=== PATIENT | male | born 1940 | race Caucasian/White ===

== ENCOUNTER 2019-07-05 17:54 | Inpatient (IN) | payer MEDICARE, MEDICAID ==
[~2019-07-05] VITALS: Ht 175.3 cm; Wt 86.2 kg
[~2019-07-05 17:54] MED LIST: VECuronium br 10mg inj. IV ONE; calcium chloride inj. 1,000 MG in normal saline 100ml IV soln 100 ML IV ONE; etomidate 2mg/ml inj. ONE
[2019-07-05] MEDS ORDERED: normal saline 1000ML IV soln IV ONE (18:05)
[2019-07-05] MEDS ORDERED: piperacillin/tazo 3.375gm/50ml 50 ML IV ONE (18:05)
[2019-07-05 18:30] LABS: ABG BASE EXCESS -7.1 mmol/L (-2.0-3.0); ABG HCO3 16.2 mmol/L (22.0-26.0); ABG OXYGEN SATURATION 96.7 % (95-98); ABG PCO2 (T) 26.2 mmHg (35.0-45.0); ABG PH (T) 7.407 (7.350-7.450); ABG PO2 (T) 89.3 mmHg (83-108); FCOHb 0.3 % (0.5-1.5); FLOW 15 L/min; FMetHb 0.2 % (0.3-1.12); FO2Hb 96.2 % (94-100); PATIENT TEMPERATURE 36.7
[2019-07-05] MEDS ORDERED: diltiazem-D5W 125mg/125ml 125 ML IV ONE (18:36)
--- NOTE | 2019-07-05 18:37 | NUR ---
DISCUSSED PLAN OF CARE WITH DR SAINI: EEVATED HR AND RR AND VERY SHALLOW BREATHS
[2019-07-05 18:38] LABS: BASOPHILS % (AUTO) 0.1 % (0-1); EOSINOPHILS # (AUTO) 0.1 X10'3 (0-0.9); EOSINOPHILS % (AUTO) 1.1 % (0-6); HEMATOCRIT 34.5 % (42.0-52.0); HEMOGLOBIN 11.7 g/dl (14.0-17.9); LYMPHOCYTES # (AUTO) 0.2 X10'3 (1.1-4.8); LYMPHOCYTES % (AUTO) 1.8 % (21-51); MEAN CORPUSCULAR HGB CONC 33.9 g/dL (33.0-36.5); MEAN CORPUSCULAR VOLUME 100.2 FL (78-98); MEAN PLATELET VOLUME 6.7 FL (7.4-10.4); MONOCYTES # (AUTO) 0.1 X10'3 (0-0.9); MONOCYTES % (AUTO) 0.8 % (2-12); NEUTROPHILS # (AUTO) 11.3 X10'3 (1.8-7.7); NEUTROPHILS % (AUTO) 96.2 % (42-75); PLATELET COUNT 104 X10'3 (140-440); RED BLOOD COUNT 3.45 X10'6 (4.70-6.10); WHITE BLOOD COUNT 11.7 X10'3 (4.5-11.0)
[2019-07-05] MEDS ORDERED: diltiazem 5mg/ml 5ml inj. IV ONE ×2 (18:40→19:00)
[2019-07-05] MEDS ORDERED: LORazepam 2 mg/ml vial IV ONE (18:40)
--- NOTE | 2019-07-05 18:44 | NUR ---
CARDIZEM 5 MG HR 154 TRASIENTLY TO 121 THEN BACK UP TO 148
[2019-07-05 18:45] LABS: PARTIAL THROMBOPLASTIN TIME 33 SECONDS (22-32)
[2019-07-05 18:48] LABS: CLARITY,URINE SLIGHTLY CLOUDY (Clear); COLOR,URINE YELLOW (Yellow); GLUCOSE, URINE NEGATIVE (Neg); KETONES,URINE NEGATIVE (Neg); LEUKOCYTE ESTERASE ,URINE SMALL (Neg); NITRITES, URINE NEGATIVE (Neg); OCCULT BLOOD,URINE LARGE (Neg); PH,URINE 5.5 (4.8-8.0); PROTEIN,URINE 100 mg/dl (Neg); UROBILINOGEN,URINE 0.2 E.U/dL (0.2-1.0)
[2019-07-05 18:50] LABS: UA COLLECTION TYPE FOLEY CATH
[2019-07-05] MEDS ORDERED: diltiazem-NS 100mg/100ml 100 ML IV ONE (18:54)
[2019-07-05 18:59] LABS: ALANINE AMINOTRANSFERASE 77 U/L (12-78); ALBUMIN 2.6 G/DL (3.4-5.0); ALBUMIN/GLOBULIN RATIO 0.6 (1.1-1.5); ALKALINE PHOSPHATASE 85 IU/L (46-116); ANION GAP 13 (8-16); ASPARTATE AMINO TRANSFERASE 74 U/L (10-37); BILIRUBIN,TOTAL 0.9 MG/DL (0.1-1.0); BLOOD UREA NITROGEN 97 MG/DL (7-18); CALCIUM 8.5 MG/DL (8.5-10.1); CHLORIDE 108 MMOL/L (99-107); CREATININE 5.11 MG/DL (0.60-1.10); GLUCOSE 119 MG/DL (70-104); POTASSIUM 5.8 MMOL/L (3.5-5.1); SODIUM 141 MMOL/L (135-145); TOTAL CARBON DIOXIDE 19.7 MMOL/L (24-32); TOTAL PROTEIN 6.7 G/DL (6.4-8.2); eGFR 11 ML/MIN
[2019-07-05 19:00] LABS: BACTERIA,URINE 3+ /HPF (Neg); FINE GRANULAR CAST >30 /LPF (NEGATIVE); SQUAMOUS EPITHELIAL CELL,UR FEW /LPF (FEW); WBC,URINE 30-50 /HPF (0-4)
[2019-07-05 19:11] LABS: MAGNESIUM 1.8 MG/DL (1.5-2.4)
[2019-07-05 19:14] LABS: CREATINE KINASE 1286 U/L (39-308)
[2019-07-05] MEDS ORDERED: midazolam 100mg in NS 100ml 100 ML IV PRN (19:14)
[2019-07-05] MEDS ORDERED: FENTANYL-0.9 % NACL/PF 100 ML IV PRN (19:14)
[2019-07-05] MEDS ORDERED: midazolam 2 mg/2 ml injection IV ONE (19:15)
--- NOTE | 2019-07-05 19:20 | NUR ---
ROCURONIUM 100 MG AND ETOMIDATE 20 MG GIVEN IV BY CHERYL GOTTLIEB
[2019-07-05 19:21] LABS: TOTAL CELLS COUNTED 100
[2019-07-05 19:22] LABS: PLATELET ESTIMATE DECREASED; TOXIC GRANULATION 2+; TOXIC VACUOLATION 2+
[2019-07-05] MEDS: propofol 1000mg/100ml bottle 100 ML IV SCH (19:39)
[2019-07-05 19:51] LABS: ABG BASE EXCESS -9.3 mmol/L (-2.0-3.0); ABG HCO3 15.5 mmol/L (22.0-26.0); ABG OXYGEN SATURATION 93.4 % (95-98); ABG PCO2 (T) 31.5 mmHg (35.0-45.0); ABG PH (T) 7.313 (7.350-7.450); ABG PO2 (T) 78.1 mmHg (83-108); ALLEN'S TEST Positive; FCOHb 0.3 % (0.5-1.5); FMetHb 0.1 % (0.3-1.12); MINUTE VOLUME 12 L/min; PATIENT TEMPERATURE 37.8; PEEP 5 cm H2O; RESPIRATORY RATE 22 b/min; RESPIRATORY RATE (OBSERVED) 22 b/min; TIDAL VOLUME 500 mL; TOTAL HEMOGLOBIN 12.3 G/dl (14.0-17.9)
--- NOTE | 2019-07-05 20:13 | NUR ---
TO CT WITH RN CHERYL ON MONITOR WITH RT
--- NOTE | 2019-07-05 20:30 | NUR ---
TROPONIN AND LACTATE DRAWN FROM RIGHT WRIST PIV
[2019-07-05] MEDS ORDERED: calcium chloride 100 MG/1 ML inj IV ONE (20:45)
--- NOTE | 2019-07-05 21:08 | NUR ---
DISCUSSED PLAN OF CARE WITH DR SAINI AND RAVI EMANUEL: HOLD CACL
[2019-07-05] MEDS ORDERED: acetaminophen 325mg tablet PO PRN ×2 (21:10)
[2019-07-05] MEDS ORDERED: potassium CL 10mEq/100ml bag 100 ML IV PRN (21:10)
[2019-07-05] MEDS ORDERED: ondansetron/PF 4mg/2ml inj IV PRN (21:10)
[2019-07-05] MEDS ORDERED: acetaminophen 650mg rectal suppository RC PRN (21:10)
[2019-07-05] MEDS ORDERED: morphine 2 MG/ML inj. syringe IV PRN (21:10)
[2019-07-05] MEDS ORDERED: morphine 4 MG/ML inj SYRINge IV PRN (21:10)
[2019-07-05] MEDS ORDERED: furosemide 10 MG/1 ML 10ml inj IV ONE (21:10)
[2019-07-05] MEDS ORDERED: potassium Cl 20 mEq SR tablet PO PRN ×2 (21:10)
[2019-07-05] MEDS ORDERED: ipratropium/albuterol 3ml nebule NEB PRN (21:10)
--- NOTE | 2019-07-05 21:56 | NUR ---
REMOVED MEDICAL SUPERINTENDENT SANDOVAL, USING STERILE TECHNIQUE PLACED 16 F TEMPERATURE SANDOVAL
[2019-07-05] MEDS: K, MAG and/or Phos replacement - Verify level? MC SCH (21:57)
--- NOTE | 2019-07-05 22:15 | NUR ---
BULL ANDRADE ATTEMPTED TO GIVE TYLENOL RECTALLY . PER RN PATITIENT DOES NOT HAVE AN ANUS. ICE PACKS PLACED
--- NOTE | 2019-07-05 22:41 | NUR ---
I have received report from Ade GOTTLIEB and had the opportunity to ask questions. Pt to be admitted to room 2009 from ER will assume patient care upon arrival.
--- NOTE | 2019-07-05 22:44 | NUR ---
REPORT TO ACCOUNTING MACHINE MECHANICBULL RICHARDSON AND RESPIRATORY THERAPY PAGED
--- NOTE | 2019-07-05 22:57 | NUR ---
CSECOND CARDIZEM GTT HUN MG/100 ML: WOULD NOT SCAN FOR THE SECOND TIME
[2019-07-05 23:13] VITALS: BP 87/48
[2019-07-05] MEDS: midazolam 100mg in NS 100ml 100 ML IV PRN (23:19)
[2019-07-06] VITALS (25 sets, daily range): BP systolic 74–148; BP diastolic 35–86
[2019-07-06] MEDS ORDERED: normal saline 500ml IV soln 500 ML IV ONE (00:25)
[2019-07-06] MEDS ORDERED: methylPREDNISolone sod succ 125mg/2ml vial IV ONE (00:25)
--- NOTE | 2019-07-06 00:30 | NUR ---
Pt with BP of 55/39 MAP 45, Versed gtt paused, Cardizem gtt off. Received orders for NS bolus and Solumederol IVP.
[2019-07-06] MEDS: sodium bicarbonate inj. 75 ML in dextrose 5% water 500ml 500 ML IV SCH ×5 (00:45→22:55)
[2019-07-06] MEDS: FENTANYL-0.9 % NACL/PF 100 ML IV PRN (01:15)
[2019-07-06 02:51] LABS: ABG BASE EXCESS -10.8 mmol/L (-2.0-3.0); ABG HCO3 12.8 mmol/L (22.0-26.0); ABG OXYGEN SATURATION 94.9 % (95-98); ABG PCO2 (T) 23.8 mmHg (35.0-45.0); ABG PH (T) 7.352 (7.350-7.450); ABG PO2 (T) 82.1 mmHg (83-108); ALLEN'S TEST Positive; FCOHb 0.2 % (0.5-1.5); FMetHb 0.1 % (0.3-1.12); FO2Hb 94.6 % (94-100); MINUTE VOLUME 14 L/min; PEEP 5 cm H2O; RESPIRATORY RATE 22 b/min; RESPIRATORY RATE (OBSERVED) 26 b/min; TIDAL VOLUME 500 mL; TOTAL HEMOGLOBIN 11.7 G/dl (14.0-17.9)
[2019-07-06 03:14] LABS: ALANINE AMINOTRANSFERASE 65 U/L (12-78); ALBUMIN 2.2 G/DL (3.4-5.0); ALBUMIN/GLOBULIN RATIO 0.6 (1.1-1.5); ALKALINE PHOSPHATASE 73 IU/L (46-116); ANION GAP 17 (8-16); ASPARTATE AMINO TRANSFERASE 55 U/L (10-37); BILIRUBIN,TOTAL 0.9 MG/DL (0.1-1.0); BLOOD UREA NITROGEN 91 MG/DL (7-18); BUN/CREATININE RATIO 20.9 (5.4-32.0); CALCIUM 7.5 MG/DL (8.5-10.1); CHLORIDE 109 MMOL/L (99-107); CREATININE 4.36 MG/DL (0.60-1.10); GLUCOSE 170 MG/DL (70-104); POTASSIUM 5.5 MMOL/L (3.5-5.1); SODIUM 141 MMOL/L (135-145); TOTAL CARBON DIOXIDE 15.5 MMOL/L (24-32); TOTAL PROTEIN 5.9 G/DL (6.4-8.2); eGFR 13 ML/MIN
[2019-07-06 03:19] LABS: MAGNESIUM 1.7 MG/DL (1.5-2.4); PHOSPHORUS 4.4 MG/DL (2.3-4.5); TRIGLYCERIDES 152 MG/DL (20-135)
[2019-07-06 03:48] LABS: BASOPHILS % (AUTO) 0.1 % (0-1); EOSINOPHILS # (AUTO) 0.1 X10'3 (0-0.9); HEMATOCRIT 33.3 % (42.0-52.0); HEMOGLOBIN 11.2 g/dl (14.0-17.9); LYMPHOCYTES # (AUTO) 0.3 X10'3 (1.1-4.8); LYMPHOCYTES % (AUTO) 2.5 % (21-51); MEAN CORPUSCULAR HGB CONC 33.6 g/dL (33.0-36.5); MEAN CORPUSCULAR VOLUME 101.1 FL (78-98); MONOCYTES # (AUTO) 0.2 X10'3 (0-0.9); MONOCYTES % (AUTO) 1.5 % (2-12); NEUTROPHILS # (AUTO) 11.6 X10'3 (1.8-7.7); NEUTROPHILS % (AUTO) 94.9 % (42-75); PLATELET COUNT 79 X10'3 (140-440); RED BLOOD COUNT 3.29 X10'6 (4.70-6.10); RED CELL DISTRIBUTION WIDTH 13.3 % (11.5-14.5); WHITE BLOOD COUNT 12.3 X10'3 (4.5-11.0)
[2019-07-06 04:10] LABS: PLATELET ESTIMATE DECREASED; TOTAL CELLS COUNTED 100
[2019-07-06 04:11] LABS: TOXIC GRANULATION 2+; TOXIC VACUOLATION 2+
[2019-07-06] MEDS ORDERED: normal saline 500ml IV soln 1,000 ML IV ONE (04:20)
--- NOTE | 2019-07-06 04:20 | NUR ---
Called Jocelyn Reese BUFFER MACHINE due to pts low BP of 79/44, received order for 500ml NS bolus.
--- NOTE | 2019-07-06 06:30 | NUR ---
Patient in room CICU 2008. I have received report from Dolores Bah RN and had the opportunity to ask questions and assume patient care.
--- NOTE | 2019-07-06 06:30 | NUR ---
Problems reprioritized. Patient report given, questions answered & plan of care reviewed with Jennifer GOTTLIEB.
[2019-07-06] MEDS: K, MAG and/or Phos replacement - Verify level? MC SCH (08:00)
[2019-07-06] MEDS: heparin, porcine 5000 units/ml vial SQ SCH ×2 (08:19→21:08)
[2019-07-06] MEDS: pantoprazole 40 MG vial IV SCH (09:38)
[2019-07-06] MEDS: piperacillin/tazo 3.375gm/50ml 50 ML IV SCH ×2 (09:38→20:55)
[2019-07-06] MEDS ORDERED: VANCOMYCIN LEVEL IV ONE (13:06)
--- NOTE | 2019-07-06 13:07 | NUR ---
Wound care POC. Arrived at bedside to assess stoma. Stoma presents with prolapse with approximately 8 cm of bowel protrusion. Stoma is pink and moist with no signs of necrosis at this time. Will follow.
[2019-07-06] MEDS ORDERED: vancomycin/NS 1 GM ADD-VANTAGE 250 ML IV PRN (13:10)
[2019-07-06] MEDS ORDERED: dextrose ORAL solution 15 GM/59 ML bottle PO PRN ×2 (13:25)
[2019-07-06] MEDS ORDERED: glucagon, human recombinant 1mg kit SUBCUT PRN (13:25)
[2019-07-06] MEDS ORDERED: dextrose 50%-water 50ml dispensing syringe IV PRN (13:25)
--- NOTE | 2019-07-06 13:41 | NUR ---
Initial: Patient is intubated and sedated, presented from [facility] for ALOC, acute renal failure, and mild hyperkalemia per ED note. Had been found down at residence. History of EtOH. Admitted here with sepsis, AMS, acute respiratory failure. NPO currently. Has a colostomy present, not new per bedside RN. Will continue to follow and monitor need for nutrition support if prolonged intubation. Recommend: 1. IF tube feeding recommend Vital AF at 70 ml/hr 2. IF tube feeding, prealbumin q friday and , daily wts 3. When extubated, advance diet as medically indicated to heart healthy 4. May benefit from MVI, thiamine, and folic acid in view of EtOH history 5. wt per rx Addendum: 07/06/19 at [address] Amended: Links added.
[2019-07-06] MEDS: insulin Lispro (HumaLOG) vial - multi-dose SQ SCH ×2 (14:05→21:17)
--- NOTE | 2019-07-06 14:15 | NUR ---
Spoke with rigo Jimenez, she is going to try to get ahold of [facility] for decision making.
[2019-07-06 14:17] LABS: PARTIAL THROMBOPLASTIN TIME 35 SECONDS (22-32); VANCOMYCIN,RANDOM 15.1 UG/ML
[2019-07-06 14:55] LABS: HEMOGLOBIN A1C 5.7 % (4.5-6.2)
[2019-07-06] MEDS ORDERED: NORepinephrine 8mg/ 250ml NS 250 ML IV ONE (15:32)
[2019-07-06] MEDS: NORepinephrine 8mg/ 250ml NS 250 ML IV SCH (16:00)
[2019-07-06] MEDS ORDERED: haloperidol lactate 5mg/ml inj IM PRN (16:40)
[2019-07-06] MEDS ORDERED: haloperidol 5mg tablet PO PRN (16:40)
[2019-07-06] MEDS ORDERED: thiamine inj. 100 MG in normal saline 100ml IV soln 100 ML IV ONE (16:40)
--- NOTE | 2019-07-06 18:26 | NUR ---
Patient in room CICU 2008. I have received report from Jennifer GOTTLIEB and had the opportunity to ask questions and assume patient care. Pt in bed on vent at 60% FiO2 with spo2 at 99%, pt restless moving all extremities, in afib with rate of 120-150s with very frequent PVCs, Levophed gtt infusing to keep MAP greater than 65 infusing via PICC will titrate per protocol, Versed gtt and fentanyl gtt for sedation and pain control infusing will titrate per protocol, bicarb gtt infusing per provider orders. See IV flowsheet, EMR and eMAR for further information. Will continue to monitor.
--- NOTE | 2019-07-06 18:28 | NUR ---
Problems reprioritized. Patient report given, questions answered & plan of care reviewed with Dolores Bah RN.
--- NOTE | 2019-07-06 18:30 | NUR ---
Spoke with Alice Lara, pts granddaughter and contact, updated her on pts condition and possible need of authorization to make decisions for pt, d/t pt being unable to make decisions at this time. Alice will shields case management or social insurance specialist to call her tomorrow regarding questions with insurance. Contact information for Alice updated, authorization to give information to Alice's Won Salcido also received.
[2019-07-06 19:30] LABS: ALANINE AMINOTRANSFERASE 71 U/L (12-78); ALBUMIN 2.1 G/DL (3.4-5.0); ALBUMIN/GLOBULIN RATIO 0.5 (1.1-1.5); ALKALINE PHOSPHATASE 85 IU/L (46-116); ANION GAP 14 (8-16); ASPARTATE AMINO TRANSFERASE 45 U/L (10-37); BILIRUBIN,TOTAL 0.7 MG/DL (0.1-1.0); BLOOD UREA NITROGEN 91 MG/DL (7-18); BUN/CREATININE RATIO 23.9 (5.4-32.0); CALCIUM 7.9 MG/DL (8.5-10.1); CHLORIDE 107 MMOL/L (99-107); GLUCOSE 234 MG/DL (70-104); POTASSIUM 4.3 MMOL/L (3.5-5.1); SODIUM 142 MMOL/L (135-145); TOTAL CARBON DIOXIDE 20.6 MMOL/L (24-32); TOTAL PROTEIN 6.3 G/DL (6.4-8.2); eGFR 15 ML/MIN
[2019-07-06] MEDS: lactobacillus rhamnosus 10,000 MMU CELLS/CAPSULE PO SCH (20:55)
[2019-07-06] MEDS: insulin glargine (Lantus) pen - multi-dose SQ SCH (21:18)
[2019-07-06] MEDS: dexmedetomidin/NS 400mcg/100ml 100 ML IV SCH (22:19)
[2019-07-06] MEDS: midazolam 100mg in NS 100ml 100 ML IV PRN (23:55)
[2019-07-07] VITALS (24 sets, daily range): BP systolic 84–122; BP diastolic 56–88
[2019-07-07] MEDS: mineral oil/petrolatum ophthal oint EACHEYE SCH ×4 (02:09→21:06)
[2019-07-07] MEDS: sodium bicarbonate inj. 75 ML in dextrose 5% water 500ml 500 ML IV SCH (02:09)
[2019-07-07] MEDS: VANCOMYCIN LEVEL IV SCH (02:09)
[2019-07-07] MEDS: insulin Lispro (HumaLOG) vial - multi-dose SQ SCH ×3 (02:13→14:58)
[2019-07-07 02:15] LABS: BASOPHILS % (AUTO) 0.1 % (0-1); EOSINOPHILS # (AUTO) 0.1 X10'3 (0-0.9); EOSINOPHILS % (AUTO) 0.3 % (0-6); HEMOGLOBIN 11.1 g/dl (14.0-17.9); LYMPHOCYTES # (AUTO) 0.4 X10'3 (1.1-4.8); LYMPHOCYTES % (AUTO) 2.4 % (21-51); MEAN CORPUSCULAR HEMOGLOBIN 33.7 PG (27.0-31.0); MEAN CORPUSCULAR HGB CONC 33.7 g/dL (33.0-36.5); MEAN PLATELET VOLUME 7.6 FL (7.4-10.4); MONOCYTES # (AUTO) 0.3 X10'3 (0-0.9); MONOCYTES % (AUTO) 1.6 % (2-12); NEUTROPHILS # (AUTO) 17.2 X10'3 (1.8-7.7); NEUTROPHILS % (AUTO) 95.6 % (42-75); PLATELET COUNT 93 X10'3 (140-440); RED CELL DISTRIBUTION WIDTH 13.6 % (11.5-14.5)
[2019-07-07 02:39] LABS: ALANINE AMINOTRANSFERASE 136 U/L (12-78); ALBUMIN 1.9 G/DL (3.4-5.0); ALBUMIN/GLOBULIN RATIO 0.4 (1.1-1.5); ALKALINE PHOSPHATASE 77 IU/L (46-116); AMYLASE 9 U/L (25-115); ANION GAP 12 (8-16); ASPARTATE AMINO TRANSFERASE 142 U/L (10-37); BILIRUBIN,TOTAL 0.6 MG/DL (0.1-1.0); BLOOD UREA NITROGEN 89 MG/DL (7-18); BUN/CREATININE RATIO 23.2 (5.4-32.0); CALCIUM 7.8 MG/DL (8.5-10.1); CHLORIDE 107 MMOL/L (99-107); CREATININE 3.84 MG/DL (0.60-1.10); GLUCOSE 259 MG/DL (70-104); LIPASE < 50 U/L (73-393); MAGNESIUM 2.2 MG/DL (1.5-2.4); PHOSPHORUS 3.4 MG/DL (2.3-4.5); POTASSIUM 4.4 MMOL/L (3.5-5.1); SODIUM 143 MMOL/L (135-145); TOTAL CARBON DIOXIDE 23.6 MMOL/L (24-32); TOTAL PROTEIN 6.2 G/DL (6.4-8.2); VANCOMYCIN,RANDOM 11.2 UG/ML; eGFR 15 ML/MIN
[2019-07-07] MEDS: FENTANYL-0.9 % NACL/PF 100 ML IV PRN (03:19)
[2019-07-07] MEDS ORDERED: LISI10TA4 PO (03:41)
[2019-07-07] MEDS ORDERED: ALPR-384 PO (03:41)
[2019-07-07] MEDS ORDERED: CARV3.122 PO (03:41)
[2019-07-07] MEDS ORDERED: HYDR-3972 PO (03:41)
[2019-07-07] MEDS ORDERED: TRAZ-219 PO (03:41)
[2019-07-07 05:11] LABS: ABG BASE EXCESS -0.2 mmol/L (-2.0-3.0); ABG HCO3 22.1 mmol/L (22.0-26.0); ABG OXYGEN SATURATION 98.8 % (95-98); ABG PCO2 (T) 29.3 mmHg (35.0-45.0); ABG PH (T) 7.495 (7.350-7.450); ABG PO2 (T) 155.3 mmHg (83-108); ALLEN'S TEST Positive; FCOHb 0.2 % (0.5-1.5); FMetHb 0.2 % (0.3-1.12); FO2Hb 98.4 % (94-100); MINUTE VOLUME 12 L/min; PATIENT TEMPERATURE 37.1; PEEP 5 cm H2O; RESPIRATORY RATE 22 b/min; RESPIRATORY RATE (OBSERVED) 22 b/min; TIDAL VOLUME 500 mL; TOTAL HEMOGLOBIN 12.1 G/dl (14.0-17.9)
--- NOTE | 2019-07-07 05:28 | NUR ---
Called Jocelyn Reese RECRUITER SPECIALIST, ABG is pH 7.495, HCO3 22.1, serum carbon dioxide is 23.6, pt was on bicarb gtt. Received orders to stop BiCarb gtt and start 0.9% NS at 100ml/hr.
[2019-07-07] MEDS: normal saline 1000ml 1,000 ML IV SCH ×3 (05:51→21:05)
--- NOTE | 2019-07-07 06:35 | NUR ---
Problems reprioritized. Patient report given, questions answered & plan of care reviewed with Elijah GOTTLIEB.
--- NOTE | 2019-07-07 06:42 | NUR ---
Patient in room CICU 2008. I have received report from Dolores and had the opportunity to ask questions and assume patient care.
[2019-07-07] MEDS ORDERED: vancomycin/NS 1 GM ADD-VANTAGE 250 ML IV ONE (06:50)
[2019-07-07] MEDS: heparin, porcine 5000 units/ml vial SQ SCH ×2 (08:07→21:07)
[2019-07-07] MEDS: lactobacillus rhamnosus 10,000 MMU CELLS/CAPSULE PO SCH (08:20)
[2019-07-07] MEDS: K, MAG and/or Phos replacement - Verify level? MC SCH (08:20)
[2019-07-07] MEDS ORDERED: thiamine inj. 100 MG in normal saline 100ml IV soln 100 ML IV ONE (09:05)
[2019-07-07] MEDS: piperacillin/tazo 3.375gm/50ml 50 ML IV SCH ×2 (10:10→21:05)
[2019-07-07] MEDS: dexmedetomidin/NS 400mcg/100ml 100 ML IV SCH (10:23)
[2019-07-07] MEDS: pantoprazole 40 MG vial IV SCH (10:23)
[2019-07-07] MEDS ORDERED: ALPRAZolam 0.25mg tablet PO PRN (11:20)
[2019-07-07] MEDS: thiamine inj. 100 MG, folic acid inj. 2 MG in normal saline 100ml IV soln 100 ML IV SCH (11:51)
[2019-07-07] MEDS: MVI, adult No.4 with vit. K 10 ML in dextrose 5% water 500ml 500 ML IV SCH ×2 (12:41)
[2019-07-07] MEDS ORDERED: acetaminophen 325mg tablet OGT PRN ×2 (14:33)
[2019-07-07] MEDS ORDERED: dextrose ORAL solution 15 GM/59 ML bottle OGT PRN ×2 (14:34)
[2019-07-07] MEDS ORDERED: potassium Cl 20 mEq SR tablet OGT PRN (14:38)
[2019-07-07] MEDS: NORepinephrine 8mg/ 250ml NS 250 ML IV SCH (14:49)
--- NOTE | 2019-07-07 14:49 | NUR ---
1430- BP 220/ 202, changed BP sites to lower left arm, patient fidgeting legs, stopped levophed, increased precedex to 0.4, restarted versed at 1 and gave a 1mg bolus, restarted fentanyl at 10mcg. Patient continued to have high BP 190/167. 1445- BP back down to 102/67, continue to monitor closely.
--- NOTE | 2019-07-07 15:19 | NUR ---
Tube feeding consult. Patient is intubated, sedated. Receiving banana bag in view of EtOH. Per MD patient to begin tube feeding with Nepro formula. To meet needs on vent patient needs TF at 55 ml/hr, recs are below. Patient had presented from [facility] for ALOC, acute renal failure, and mild hyperkalemia per ED note. Had been found down at residence. History of EtOH. Admitted here with sepsis, AMS, acute respiratory failure. Has a colostomy present, not new per bedside RN. Will continue to follow. Recommend: 1. continuous tube feeding with Nepro per MD, recommend goal rate of 55 ml/hr to provide total volume 1320 ml, 2376 cals, 106 g protein, and 964 ml water 2. prealbumin q friday and , daily wts 3. When extubated, advance diet as medically indicated to heart healthy 4. Continue banana bag d/t EtOH history 5. wt per rx Addendum: 07/07/19 at [address] Amended: Links added.
[2019-07-07] MEDS: propofol 1000mg/100ml bottle 100 ML IV SCH (17:04)
--- NOTE | 2019-07-07 18:27 | NUR ---
Problems reprioritized. Patient report given, questions answered & plan of care reviewed with Dolores.
[2019-07-07] MEDS: carVEDilol 3.125mg tablet OGT SCH (20:00)
[2019-07-07] MEDS: traZODone 50mg tablet OGT SCH (21:00)
[2019-07-07] MEDS: lactobacillus rhamnosus 10,000 MMU CELLS/CAPSULE OGT SCH (21:06)
[2019-07-07] MEDS: insulin regular, human vial - multi-dose SQ SCH (21:27)
[2019-07-07] MEDS: insulin glargine (Lantus) pen - multi-dose SQ SCH (21:28)
[2019-07-08] VITALS (24 sets, daily range): BP systolic 66–135; BP diastolic 37–86
[2019-07-08] MEDS: dexmedetomidin/NS 400mcg/100ml 100 ML IV SCH ×3 (00:45→23:53)
[2019-07-08] MEDS: mineral oil/petrolatum ophthal oint EACHEYE SCH ×4 (02:52→20:33)
[2019-07-08] MEDS: insulin regular, human vial - multi-dose SQ SCH ×3 (02:54→14:16)
[2019-07-08] MEDS: VANCOMYCIN LEVEL IV SCH (03:00)
[2019-07-08 03:31] LABS: ABG BASE EXCESS -3.6 mmol/L (-2.0-3.0); ABG OXYGEN SATURATION 94.4 % (95-98); ABG PCO2 (T) 28.3 mmHg (35.0-45.0); ABG PH (T) 7.447 (7.350-7.450); ABG PO2 (T) 75.8 mmHg (83-108); ALLEN'S TEST Positive; FCOHb 0.2 % (0.5-1.5); FMetHb 0.2 % (0.3-1.12); MINUTE VOLUME 12 L/min; PATIENT TEMPERATURE 37.6; PEEP 5 cm H2O; RESPIRATORY RATE 18 b/min; RESPIRATORY RATE (OBSERVED) 21 b/min; TIDAL VOLUME 500 mL; TOTAL HEMOGLOBIN 12.3 G/dl (14.0-17.9)
[2019-07-08 03:33] LABS: BASOPHILS % (AUTO) 0.1 % (0-1); EOSINOPHILS % (AUTO) 0 % (0-6); HEMATOCRIT 34.9 % (42.0-52.0); HEMOGLOBIN 11.7 g/dl (14.0-17.9); LYMPHOCYTES # (AUTO) 0.6 X10'3 (1.1-4.8); LYMPHOCYTES % (AUTO) 4.1 % (21-51); MEAN CORPUSCULAR HEMOGLOBIN 33.8 PG (27.0-31.0); MEAN CORPUSCULAR HGB CONC 33.6 g/dL (33.0-36.5); MEAN CORPUSCULAR VOLUME 100.5 FL (78-98); MEAN PLATELET VOLUME 8.2 FL (7.4-10.4); MONOCYTES # (AUTO) 0.2 X10'3 (0-0.9); MONOCYTES % (AUTO) 1.3 % (2-12); NEUTROPHILS % (AUTO) 94.5 % (42-75); PLATELET COUNT 73 X10'3 (140-440); RED BLOOD COUNT 3.47 X10'6 (4.70-6.10); RED CELL DISTRIBUTION WIDTH 13.5 % (11.5-14.5); WHITE BLOOD COUNT 14.8 X10'3 (4.5-11.0)
[2019-07-08 03:51] LABS: ALANINE AMINOTRANSFERASE 271 U/L (12-78); ALBUMIN 1.7 G/DL (3.4-5.0); ALBUMIN/GLOBULIN RATIO 0.4 (1.1-1.5); ALKALINE PHOSPHATASE 81 IU/L (46-116); AMYLASE 9 U/L (25-115); ANION GAP 12 (8-16); ASPARTATE AMINO TRANSFERASE 172 U/L (10-37); BILIRUBIN,TOTAL 0.6 MG/DL (0.1-1.0); BLOOD UREA NITROGEN 93 MG/DL (7-18); BUN/CREATININE RATIO 29.9 (5.4-32.0); CALCIUM 7.7 MG/DL (8.5-10.1); CHLORIDE 111 MMOL/L (99-107); CREATININE 3.11 MG/DL (0.60-1.10); GLUCOSE 153 MG/DL (70-104); LIPASE < 50 U/L (73-393); MAGNESIUM 2.3 MG/DL (1.5-2.4); PHOSPHORUS 3.3 MG/DL (2.3-4.5); SODIUM 146 MMOL/L (135-145); TOTAL CARBON DIOXIDE 22.7 MMOL/L (24-32); TOTAL PROTEIN 5.7 G/DL (6.4-8.2); VANCOMYCIN,RANDOM 14.1 UG/ML; eGFR 19 ML/MIN
[2019-07-08] MEDS: normal saline 1000ml 1,000 ML IV SCH (05:51)
--- NOTE | 2019-07-08 06:30 | NUR ---
Problems reprioritized. Patient report given, questions answered & plan of care reviewed with Elijah GOTTLIEB.
[2019-07-08] MEDS ORDERED: vancomycin/NS 1 GM ADD-VANTAGE 250 ML IV ONE (07:00)
[2019-07-08] MEDS: piperacillin/tazo 3.375gm/50ml 50 ML IV SCH ×2 (07:37→20:55)
[2019-07-08] MEDS: heparin, porcine 5000 units/ml vial SQ SCH (07:38)
[2019-07-08] MEDS: pantoprazole 40 MG vial IV SCH (07:38)
[2019-07-08] MEDS: lactobacillus rhamnosus 10,000 MMU CELLS/CAPSULE OGT SCH ×2 (07:39→20:35)
[2019-07-08] MEDS: carVEDilol 3.125mg tablet OGT SCH ×2 (08:00→20:35)
[2019-07-08] MEDS: K, MAG and/or Phos replacement - Verify level? MC SCH (08:00)
[2019-07-08] MEDS: MVI, adult No.4 with vit. K 10 ML in dextrose 5% water 500ml 500 ML IV SCH ×2 (09:19)
[2019-07-08] MEDS: thiamine inj. 100 MG, folic acid inj. 2 MG in normal saline 100ml IV soln 100 ML IV SCH (09:19)
--- NOTE | 2019-07-08 10:09 | NUR ---
Wound care POC. Arrived at bedside and spoke with primary nurse about ostomy and she states the bag is intact at this time. Will continue to monitor for any changing needs.
--- NOTE | 2019-07-08 11:28 | NUR ---
0700 Received report from Dolores, assumed care of patient. 1000 Rounds completed- NA level 146, decrease NS to 50hr, add 250 Free water flushes q 6hr, changing anticoagulant from heparin to lovenox, pharmacy to dose.
[2019-07-08] MEDS ORDERED: LORazepam 2 mg/ml vial ONE (12:24)
[2019-07-08] MEDS: LORazepam 2 mg/ml vial IV PRN (12:27)
[2019-07-08] MEDS ORDERED: amiodarone 150mg/dext, iso-os 100 ML IV ONE ×2 (12:50→12:54)
--- NOTE | 2019-07-08 13:27 | NUR ---
[id number]- patient legs vibrating, respiration >40, BP 140/80, HR up to 178. Increased sedation, versed boluses, increased fentanyl, no change in vital signs. administered 1 mg ativan per etoh withdrawal orders. Respiration in the high 30's. Dr han notified amiodarone gtt started. 1300- BP 104/58, HR 110, respiration 31, temp up to 39.5, call placed to Dr Han, antipyretic, blood culture x 2 and procalcitonin 1335 BP 66/37 levophed resumed at 5 mcg.
[2019-07-08] MEDS ORDERED: acetaminophen 325mg/10.15ml oral unit dose solution OGT PRN (13:39)
[2019-07-08] MEDS: acetaminophen 325mg/10.15ml oral unit dose solution OGT PRN (14:03)
[2019-07-08] MEDS: midazolam 100mg in NS 100ml 100 ML IV PRN (15:49)
[2019-07-08] MEDS: FENTANYL-0.9 % NACL/PF 100 ML IV PRN (15:49)
[2019-07-08] MEDS: NORepinephrine 8mg/ 250ml NS 250 ML IV SCH (16:00)
--- NOTE | 2019-07-08 16:57 | NUR ---
Spoke at length to co worker and granddaughter, no recent history of drinking, co worker in patients house currently, only soda cans are there. No history on recent ER visit or visit to most recent MD list patient as a drinker. BIS at 25 on minimal sedation. Alerted MD to this fact. MD wants a head CT.
--- NOTE | 2019-07-08 18:52 | NUR ---
1655 Small runs of vtach, 5-6 beats, did not sustain. 1800- to CT 1830 back in room, Report off to Martinez.
--- NOTE | 2019-07-08 19:22 | NUR ---
assumed care from Elijah GOTTLIEB no questions or concerns after assuming care
[2019-07-08] MEDS: enoxaparin 60mg/0.6ml syringe SUBCUT SCH (20:00)
[2019-07-08] MEDS: traZODone 50mg tablet OGT SCH (20:33)
[2019-07-08] MEDS: insulin glargine (Lantus) pen - multi-dose SQ SCH (21:00)
[2019-07-08] MEDS: dextrose 50%-water 50ml dispensing syringe IV PRN (21:48)
--- NOTE | 2019-07-08 23:00 | NUR ---
patient afebrile, HR wnl, rr even un labored no observable s/s of acute stress at this
[2019-07-09] VITALS (23 sets, daily range): BP systolic 79–142; BP diastolic 49–76
--- NOTE | 2019-07-09 01:37 | NUR ---
patient still sedated, localized to light painful stimuli, rr even un labored no observable s/s of acute stress at this time
[2019-07-09] MEDS: mineral oil/petrolatum ophthal oint EACHEYE SCH ×4 (02:20→21:36)
[2019-07-09] MEDS: VANCOMYCIN LEVEL IV SCH (02:21)
[2019-07-09 03:25] LABS: ABG BASE EXCESS -3.9 mmol/L (-2.0-3.0); ABG HCO3 19.3 mmol/L (22.0-26.0); ABG OXYGEN SATURATION 97.2 % (95-98); ABG PCO2 (T) 30.6 mmHg (35.0-45.0); ABG PO2 (T) 98.7 mmHg (83-108); ALLEN'S TEST Positive; FCOHb 0.3 % (0.5-1.5); FMetHb 0.2 % (0.3-1.12); FO2Hb 96.7 % (94-100); MINUTE VOLUME 10 L/min; PATIENT TEMPERATURE 37.6; PEEP 5 cm H2O; RESPIRATORY RATE 18 b/min; RESPIRATORY RATE (OBSERVED) 18 b/min; TIDAL VOLUME 500 mL; TOTAL HEMOGLOBIN 12.9 G/dl (14.0-17.9)
[2019-07-09 03:50] LABS: BASOPHILS % (AUTO) 0.1 % (0-1); EOSINOPHILS % (AUTO) 0 % (0-6); HEMATOCRIT 34.8 % (42.0-52.0); HEMOGLOBIN 11.8 g/dl (14.0-17.9); LYMPHOCYTES # (AUTO) 0.9 X10'3 (1.1-4.8); LYMPHOCYTES % (AUTO) 4.5 % (21-51); MEAN CORPUSCULAR HEMOGLOBIN 34.2 PG (27.0-31.0); MEAN CORPUSCULAR HGB CONC 33.9 g/dL (33.0-36.5); MEAN CORPUSCULAR VOLUME 101.1 FL (78-98); MEAN PLATELET VOLUME 8.3 FL (7.4-10.4); MONOCYTES # (AUTO) 0.3 X10'3 (0-0.9); MONOCYTES % (AUTO) 1.8 % (2-12); NEUTROPHILS # (AUTO) 18.5 X10'3 (1.8-7.7); NEUTROPHILS % (AUTO) 93.6 % (42-75); PLATELET COUNT 55 X10'3 (140-440); RED BLOOD COUNT 3.44 X10'6 (4.70-6.10); RED CELL DISTRIBUTION WIDTH 13.5 % (11.5-14.5); WHITE BLOOD COUNT 19.7 X10'3 (4.5-11.0)
[2019-07-09 04:03] LABS: ALANINE AMINOTRANSFERASE 215 U/L (12-78); ALBUMIN 1.5 G/DL (3.4-5.0); ALBUMIN/GLOBULIN RATIO 0.4 (1.1-1.5); ALKALINE PHOSPHATASE 117 IU/L (46-116); AMYLASE 15 U/L (25-115); ANION GAP 9 (8-16); ASPARTATE AMINO TRANSFERASE 109 U/L (10-37); BILIRUBIN,TOTAL 0.5 MG/DL (0.1-1.0); BLOOD UREA NITROGEN 83 MG/DL (7-18); BUN/CREATININE RATIO 34.3 (5.4-32.0); CALCIUM 7.2 MG/DL (8.5-10.1); CHLORIDE 113 MMOL/L (99-107); CREATININE 2.42 MG/DL (0.60-1.10); GLUCOSE 118 MG/DL (70-104); LIPASE < 50 U/L (73-393); MAGNESIUM 2.1 MG/DL (1.5-2.4); PHOSPHORUS 2.7 MG/DL (2.3-4.5); POTASSIUM 3.7 MMOL/L (3.5-5.1); SODIUM 146 MMOL/L (135-145); TOTAL CARBON DIOXIDE 23.7 MMOL/L (24-32); TOTAL PROTEIN 5.3 G/DL (6.4-8.2); VANCOMYCIN,RANDOM 14.8 UG/ML; eGFR 26 ML/MIN
[2019-07-09] MEDS: normal saline 1000ml 1,000 ML IV SCH (04:58)
[2019-07-09] MEDS: NORepinephrine 8mg/ 250ml NS 250 ML IV SCH ×2 (04:58→19:06)
--- NOTE | 2019-07-09 05:13 | NUR ---
patients eyes closed rr even un labored no observable s/s of acute stress at this time
[2019-07-09] MEDS ORDERED: vancomycin/NS 1 GM ADD-VANTAGE 250 ML IV ONE (06:30)
--- NOTE | 2019-07-09 06:30 | NUR ---
Patient in room CICU 2008. I have received report from BULL Henriquez and had the opportunity to ask questions and assume patient care.
--- NOTE | 2019-07-09 06:30 | NUR ---
sbar to yves GOTTLIEB no questions or concerns after assuming care
[2019-07-09] MEDS: K, MAG and/or Phos replacement - Verify level? MC SCH (08:00)
[2019-07-09] MEDS: pantoprazole 40 MG vial IV SCH (09:06)
[2019-07-09] MEDS: MVI, adult No.4 with vit. K 10 ML in dextrose 5% water 500ml 500 ML IV SCH ×2 (09:06)
[2019-07-09] MEDS: lactobacillus rhamnosus 10,000 MMU CELLS/CAPSULE OGT SCH ×2 (09:07→21:36)
[2019-07-09] MEDS: thiamine inj. 100 MG, folic acid inj. 2 MG in normal saline 100ml IV soln 100 ML IV SCH (09:07)
[2019-07-09] MEDS: carVEDilol 3.125mg tablet OGT SCH ×2 (09:07→21:37)
[2019-07-09] MEDS: dexmedetomidin/NS 400mcg/100ml 100 ML IV SCH ×3 (09:08→21:37)
[2019-07-09] MEDS: insulin regular, human vial - multi-dose SQ SCH ×3 (09:59→21:42)
[2019-07-09] MEDS: acetaminophen 325mg/10.15ml oral unit dose solution OGT PRN ×3 (10:26→23:12)
[2019-07-09] MEDS: CefTRIAXone 2gm/D5W 50ml 50 ML IV SCH (10:26)
[2019-07-09] MEDS: enoxaparin 60mg/0.6ml syringe SUBCUT SCH (11:02)
[2019-07-09] MEDS: enoxaparin 30mg/0.3ml syringe SUBCUT SCH (12:44)
--- NOTE | 2019-07-09 13:59 | NUR ---
Reassessment: tube feedings tolerated at goal rate of 55 ml/hr, GRV are WNL. Patient is intubated, sedated. Receiving banana bag in view of EtOH. Patient had presented from [facility] for ALOC, acute renal failure, and mild hyperkalemia per ED note. Had been found down at residence. History of EtOH. Admitted here with sepsis, AMS, acute respiratory failure. Has a colostomy present, 800 ml out on 07/08. Will continue to follow. Recommend: 1. continuous tube feeding with Nepro per MD, recommend goal rate of 55 ml/hr to provide total volume 1320 ml, 2376 cals, 106 g protein, and 964 ml water 2. prealbumin q friday and , daily wts, additional water flush per MD 3. When extubated, advance diet as medically indicated to heart healthy 4. Continue banana bag d/t EtOH history Addendum: 07/09/19 at [address] Amended: Links added.
[2019-07-09] MEDS: amiodarone/D5 360MG/200ML BAG 200 ML IV SCH (14:45)
[2019-07-09] MEDS: LORazepam 2 mg/ml vial IV PRN (15:03)
--- NOTE | 2019-07-09 18:30 | NUR ---
Patient in room CICU 2008. I have received report from Saroj GOTTLIEB and had the opportunity to ask questions and assume patient care.
--- NOTE | 2019-07-09 20:30 | NUR ---
we took pt down to MRI from around 1914 to 2019. pt tolerated well. no complications. versed used for sedation. awaiting radiology reports.
[2019-07-09] MEDS: traZODone 50mg tablet OGT SCH (21:00)
[2019-07-09] MEDS: insulin glargine (Lantus) pen - multi-dose SQ SCH (21:43)
[2019-07-10] VITALS (24 sets, daily range): BP systolic 90–154; BP diastolic 50–84
--- NOTE | 2019-07-10 01:00 | NUR ---
around 0100 pt was being repositioned, and very clearly was seen moving his left arm. this was the first time i had seen his left arm move this shift. all other extremities continue to move as well. continue to monitor.
[2019-07-10] MEDS: mineral oil/petrolatum ophthal oint EACHEYE SCH ×4 (01:40→19:49)
[2019-07-10] MEDS: amiodarone/D5 360MG/200ML BAG 200 ML IV SCH ×2 (01:41→14:15)
[2019-07-10 02:31] LABS: ABG BASE EXCESS -4.7 mmol/L (-2.0-3.0); ABG HCO3 18.2 mmol/L (22.0-26.0); ABG OXYGEN SATURATION 97.6 % (95-98); ABG PCO2 (T) 28.8 mmHg (35.0-45.0); ABG PH (T) 7.422 (7.350-7.450); ABG PO2 (T) 102.4 mmHg (83-108); ALLEN'S TEST Positive; FCOHb 0.3 % (0.5-1.5); FMetHb 0.2 % (0.3-1.12); FO2Hb 97.1 % (94-100); MINUTE VOLUME 12 L/min; PATIENT TEMPERATURE 37.7; PEEP 5 cm H2O; RESPIRATORY RATE 18 b/min; RESPIRATORY RATE (OBSERVED) 20 b/min; TIDAL VOLUME 500 mL; TOTAL HEMOGLOBIN 12.9 G/dl (14.0-17.9)
[2019-07-10] MEDS: insulin regular, human vial - multi-dose SQ SCH ×4 (02:51→19:54)
[2019-07-10 03:08] LABS: HEMOGLOBIN 11.6 g/dl (14.0-17.9); PLATELET COUNT 61 X10'3 (140-440); WHITE BLOOD COUNT 22.3 X10'3 (4.5-11.0)
[2019-07-10 03:10] LABS: HEMATOCRIT 35.1 % (42.0-52.0); MEAN CORPUSCULAR HEMOGLOBIN 33.5 PG (27.0-31.0); MEAN CORPUSCULAR VOLUME 101.5 FL (78-98); RED BLOOD COUNT 3.46 X10'6 (4.70-6.10); RED CELL DISTRIBUTION WIDTH 13.6 % (11.5-14.5)
[2019-07-10 03:19] LABS: ALANINE AMINOTRANSFERASE 219 U/L (12-78); ALBUMIN 1.3 G/DL (3.4-5.0); ALBUMIN/GLOBULIN RATIO 0.3 (1.1-1.5); ALKALINE PHOSPHATASE 133 IU/L (46-116); AMYLASE 14 U/L (25-115); ANION GAP 8 (8-16); ASPARTATE AMINO TRANSFERASE 129 U/L (10-37); BILIRUBIN,TOTAL 0.4 MG/DL (0.1-1.0); BLOOD UREA NITROGEN 68 MG/DL (7-18); BUN/CREATININE RATIO 32.1 (5.4-32.0); CALCIUM 7.1 MG/DL (8.5-10.1); CHLORIDE 113 MMOL/L (99-107); CREATININE 2.12 MG/DL (0.60-1.10); GLUCOSE 184 MG/DL (70-104); LIPASE 51 U/L (73-393); MAGNESIUM 1.9 MG/DL (1.5-2.4); POTASSIUM 3.4 MMOL/L (3.5-5.1); SODIUM 145 MMOL/L (135-145); TOTAL CARBON DIOXIDE 24.3 MMOL/L (24-32); TOTAL PROTEIN 5.1 G/DL (6.4-8.2); eGFR 30 ML/MIN
[2019-07-10] MEDS: normal saline 1000ml 1,000 ML IV SCH (03:25)
[2019-07-10 03:42] LABS: BANDS% (MANUAL) 4 % (0-10); LYMPHOCYTES % (MANUAL) 6 % (21-51); NEUTROPHILS % (MANUAL) 90 % (42-75); TOTAL CELLS COUNTED 100
[2019-07-10 03:43] LABS: PLATELET ESTIMATE DECREASED
[2019-07-10] MEDS ORDERED: potassium phosphate inj 15 MMOL in normal saline 250ml IV soln 245 ML IV ONE (06:55)
[2019-07-10] MEDS: MVI, adult No.4 with vit. K 10 ML in dextrose 5% water 500ml 500 ML IV SCH ×2 (07:48)
[2019-07-10] MEDS: carVEDilol 3.125mg tablet OGT SCH ×2 (07:49→19:24)
[2019-07-10] MEDS: CefTRIAXone 2gm/D5W 50ml 50 ML IV SCH (07:49)
[2019-07-10] MEDS: thiamine inj. 100 MG, folic acid inj. 2 MG in normal saline 100ml IV soln 100 ML IV SCH (07:49)
[2019-07-10] MEDS: lactobacillus rhamnosus 10,000 MMU CELLS/CAPSULE OGT SCH ×2 (07:49→19:49)
[2019-07-10] MEDS: enoxaparin 60mg/0.6ml syringe SUBCUT SCH (08:00)
[2019-07-10] MEDS: enoxaparin 30mg/0.3ml syringe SUBCUT SCH (08:00)
[2019-07-10] MEDS: K, MAG and/or Phos replacement - Verify level? MC SCH (08:23)
[2019-07-10] MEDS: pantoprazole 40 MG vial IV SCH (08:27)
[2019-07-10] MEDS: potassium Cl 20 mEq SR tablet OGT PRN (08:27)
[2019-07-10] MEDS: acetaminophen 325mg/10.15ml oral unit dose solution OGT PRN ×2 (09:37→18:01)
[2019-07-10] MEDS: dexmedetomidin/NS 400mcg/100ml 100 ML IV SCH (16:15)
[2019-07-10] MEDS ORDERED: LORazepam 1 MG tablet OGT PRN (16:40)
--- NOTE | 2019-07-10 18:30 | NUR ---
Patient in room CICU 2008. I have received report from Day Shift RN and had the opportunity to ask questions and assume patient care.
[2019-07-10] MEDS: insulin glargine (Lantus) pen - multi-dose SQ SCH (19:55)
[2019-07-10] MEDS: traZODone 50mg tablet OGT SCH (20:22)
[2019-07-11] VITALS (23 sets, daily range): BP systolic 79–156; BP diastolic 40–80
[2019-07-11] MEDS: normal saline 1000ml 1,000 ML IV SCH ×2 (00:05→20:22)
[2019-07-11] MEDS: mineral oil/petrolatum ophthal oint EACHEYE SCH ×4 (02:01→20:16)
[2019-07-11] MEDS: dexmedetomidin/NS 400mcg/100ml 100 ML IV SCH ×3 (02:01→23:54)
[2019-07-11] MEDS: amiodarone/D5 360MG/200ML BAG 200 ML IV SCH ×2 (02:02→13:35)
[2019-07-11] MEDS: dextrose 50%-water 50ml dispensing syringe IV PRN (02:07)
[2019-07-11] MEDS: insulin regular, human vial - multi-dose SQ SCH ×4 (02:18→20:11)
[2019-07-11 02:22] LABS: BASOPHILS # (AUTO) 0.1 X10'3 (0-0.2); BASOPHILS % (AUTO) 0.3 % (0-1); EOSINOPHILS % (AUTO) 0.1 % (0-6); HEMATOCRIT 34.9 % (42.0-52.0); HEMOGLOBIN 11.7 g/dl (14.0-17.9); LYMPHOCYTES # (AUTO) 0.5 X10'3 (1.1-4.8); LYMPHOCYTES % (AUTO) 2.4 % (21-51); MEAN CORPUSCULAR HEMOGLOBIN 33.7 PG (27.0-31.0); MEAN CORPUSCULAR HGB CONC 33.7 g/dL (33.0-36.5); MONOCYTES # (AUTO) 0.2 X10'3 (0-0.9); MONOCYTES % (AUTO) 0.9 % (2-12); NEUTROPHILS # (AUTO) 21.5 X10'3 (1.8-7.7); NEUTROPHILS % (AUTO) 96.3 % (42-75); PLATELET COUNT 67 X10'3 (140-440); RED BLOOD COUNT 3.49 X10'6 (4.70-6.10); RED CELL DISTRIBUTION WIDTH 13.7 % (11.5-14.5); WHITE BLOOD COUNT 22.3 X10'3 (4.5-11.0)
[2019-07-11 02:43] LABS: ALANINE AMINOTRANSFERASE 163 U/L (12-78); ALBUMIN 1.3 G/DL (3.4-5.0); ALBUMIN/GLOBULIN RATIO 0.3 (1.1-1.5); ALKALINE PHOSPHATASE 106 IU/L (46-116); AMYLASE 20 U/L (25-115); ANION GAP 11 (8-16); ASPARTATE AMINO TRANSFERASE 70 U/L (10-37); BILIRUBIN,TOTAL 0.4 MG/DL (0.1-1.0); BLOOD UREA NITROGEN 52 MG/DL (7-18); BUN/CREATININE RATIO 30.1 (5.4-32.0); CALCIUM 7.2 MG/DL (8.5-10.1); CHLORIDE 114 MMOL/L (99-107); CREATININE 1.73 MG/DL (0.60-1.10); GLUCOSE 75 MG/DL (70-104); LIPASE 55 U/L (73-393); MAGNESIUM 1.7 MG/DL (1.5-2.4); PHOSPHORUS 1.9 MG/DL (2.3-4.5); POTASSIUM 3.2 MMOL/L (3.5-5.1); SODIUM 145 MMOL/L (135-145); TOTAL CARBON DIOXIDE 19.7 MMOL/L (24-32); TOTAL PROTEIN 5.4 G/DL (6.4-8.2); eGFR 38 ML/MIN
[2019-07-11] MEDS: potassium Cl 20 mEq SR tablet OGT PRN ×3 (03:04→12:14)
[2019-07-11 03:06] LABS: ABG BASE EXCESS -4.6 mmol/L (-2.0-3.0); ABG HCO3 17.9 mmol/L (22.0-26.0); ABG OXYGEN SATURATION 97.2 % (95-98); ABG PCO2 (T) 27.6 mmHg (35.0-45.0); ABG PH (T) 7.434 (7.350-7.450); ABG PO2 (T) 94.1 mmHg (83-108); ALLEN'S TEST Positive; FCOHb 0.3 % (0.5-1.5); FMetHb 0.2 % (0.3-1.12); FO2Hb 96.7 % (94-100); MINUTE VOLUME 17 L/min; PATIENT TEMPERATURE 38.3; PEEP 5 cm H2O; RESPIRATORY RATE 18 b/min; RESPIRATORY RATE (OBSERVED) 34 b/min; TIDAL VOLUME 500 mL; TOTAL HEMOGLOBIN 12.2 G/dl (14.0-17.9)
[2019-07-11] MEDS: acetaminophen 325mg/10.15ml oral unit dose solution OGT PRN ×3 (03:07→21:31)
[2019-07-11 03:55] LABS: TOTAL CELLS COUNTED 100
[2019-07-11 03:56] LABS: ANISOCYTOSIS 1+; PLATELET ESTIMATE DECREASED
--- NOTE | 2019-07-11 06:30 | NUR ---
Patient in room CICU 2008. I have received report from BULL West and had the opportunity to ask questions and assume patient care.
--- NOTE | 2019-07-11 06:34 | NUR ---
Problems reprioritized. Patient report given, questions answered & plan of care reviewed with Saroj GOTTLIEB.
[2019-07-11] MEDS: CefTRIAXone 2gm/D5W 50ml 50 ML IV SCH (07:23)
[2019-07-11] MEDS: enoxaparin 30mg/0.3ml syringe SUBCUT SCH (07:36)
[2019-07-11] MEDS: enoxaparin 60mg/0.6ml syringe SUBCUT SCH (07:36)
[2019-07-11] MEDS: thiamine inj. 100 MG, folic acid inj. 2 MG in normal saline 100ml IV soln 100 ML IV SCH (07:42)
[2019-07-11] MEDS: carVEDilol 3.125mg tablet OGT SCH ×2 (07:42→20:00)
[2019-07-11] MEDS: MVI, adult No.4 with vit. K 10 ML in dextrose 5% water 500ml 500 ML IV SCH ×2 (07:42)
[2019-07-11] MEDS: pantoprazole 40 MG vial IV SCH (07:42)
[2019-07-11] MEDS: lactobacillus rhamnosus 10,000 MMU CELLS/CAPSULE OGT SCH ×2 (07:42→20:05)
[2019-07-11] MEDS: K, MAG and/or Phos replacement - Verify level? MC SCH (07:43)
[2019-07-11] MEDS ORDERED: potassium phosphate inj 15 MMOL in normal saline 250ml IV soln 245 ML IV ONE (15:00)
[2019-07-11] MEDS: fentaNYL/PF 50MCG/1 ML 2ML syringe IV PRN ×7 (16:45→20:15)
--- NOTE | 2019-07-11 18:30 | NUR ---
Patient in room CICU 2008. I have received report from Saroj GOTTLIEB and had the opportunity to ask questions and assume patient care.
[2019-07-11] MEDS: FENTANYL-0.9 % NACL/PF 100 ML IV PRN (20:06)
[2019-07-11] MEDS: insulin glargine (Lantus) pen - multi-dose SQ SCH (20:11)
[2019-07-11] MEDS: traZODone 50mg tablet OGT SCH (20:22)
--- NOTE | 2019-07-11 20:30 | NUR ---
pt has been restless and agitated since start of shift. he is not following commands. RR is 37-40. he is moving extremities. and temp is increasing. fentanyl pushes were attempted, and did seem to have some success. 100mcg total was given as pushes. continues to be agitated in bed. therefore, fentanyl drip started at 2014. started at 25mcg/hr. seems to be helping pt relax. continue to monitor.
[2019-07-11] MEDS ORDERED: albumin (Human) 5% 250ml 250 ML IV ONE (22:55)
[2019-07-12] VITALS (24 sets, daily range): BP systolic 90–169; BP diastolic 38–75
[2019-07-12] MEDS: amiodarone/D5 360MG/200ML BAG 200 ML IV SCH ×2 (01:57→14:08)
[2019-07-12] MEDS: mineral oil/petrolatum ophthal oint EACHEYE SCH ×4 (02:17→20:25)
[2019-07-12] MEDS: insulin regular, human vial - multi-dose SQ SCH ×3 (02:18→20:39)
[2019-07-12 03:03] LABS: BASOPHILS % (AUTO) 0 % (0-1); EOSINOPHILS % (AUTO) 0 % (0-6); HEMATOCRIT 30.2 % (42.0-52.0); HEMOGLOBIN 10.3 g/dl (14.0-17.9); LYMPHOCYTES # (AUTO) 0.4 X10'3 (1.1-4.8); MEAN CORPUSCULAR HEMOGLOBIN 33.8 PG (27.0-31.0); MEAN CORPUSCULAR HGB CONC 34.2 g/dL (33.0-36.5); MEAN CORPUSCULAR VOLUME 98.9 FL (78-98); MEAN PLATELET VOLUME 8.8 FL (7.4-10.4); MONOCYTES # (AUTO) 0.2 X10'3 (0-0.9); NEUTROPHILS # (AUTO) 19.1 X10'3 (1.8-7.7); PLATELET COUNT 84 X10'3 (140-440); RED BLOOD COUNT 3.05 X10'6 (4.70-6.10); RED CELL DISTRIBUTION WIDTH 13.6 % (11.5-14.5); WHITE BLOOD COUNT 19.7 X10'3 (4.5-11.0)
[2019-07-12 03:26] LABS: ALANINE AMINOTRANSFERASE 88 U/L (12-78); ALBUMIN 1.5 G/DL (3.4-5.0); ALBUMIN/GLOBULIN RATIO 0.4 (1.1-1.5); ALKALINE PHOSPHATASE 98 IU/L (46-116); ANION GAP 14 (8-16); ASPARTATE AMINO TRANSFERASE 30 U/L (10-37); BILIRUBIN,TOTAL 0.5 MG/DL (0.1-1.0); BLOOD UREA NITROGEN 47 MG/DL (7-18); BUN/CREATININE RATIO 27.8 (5.4-32.0); CALCIUM 7.4 MG/DL (8.5-10.1); CHLORIDE 112 MMOL/L (99-107); CREATININE 1.69 MG/DL (0.60-1.10); GLUCOSE 124 MG/DL (70-104); MAGNESIUM 1.6 MG/DL (1.5-2.4); PHOSPHORUS 2.8 MG/DL (2.3-4.5); POTASSIUM 3.1 MMOL/L (3.5-5.1); PREALBUMIN 9.1 MG/DL (19-36); SODIUM 145 MMOL/L (135-145); TOTAL CARBON DIOXIDE 18.7 MMOL/L (24-32); TOTAL PROTEIN 5.3 G/DL (6.4-8.2); eGFR 39 ML/MIN
[2019-07-12 03:56] LABS: ABG BASE EXCESS -5.1 mmol/L (-2.0-3.0); ABG HCO3 18.1 mmol/L (22.0-26.0); ABG OXYGEN SATURATION 97.4 % (95-98); ABG PCO2 (T) 28.5 mmHg (35.0-45.0); ABG PH (T) 7.423 (7.350-7.450); ALLEN'S TEST Positive; FCOHb 0.3 % (0.5-1.5); FMetHb 0.2 % (0.3-1.12); FO2Hb 96.9 % (94-100); MINUTE VOLUME 15 L/min; PATIENT TEMPERATURE 37.3; PEEP 5 cm H2O; RESPIRATORY RATE 18 b/min; RESPIRATORY RATE (OBSERVED) 28 b/min; TIDAL VOLUME 500 mL; TOTAL HEMOGLOBIN 11.4 G/dl (14.0-17.9)
[2019-07-12] MEDS: potassium CL 10mEq/100ml bag 100 ML IV PRN ×4 (05:16→10:44)
--- NOTE | 2019-07-12 06:00 | NUR ---
Granddaughter and grandson called at this time. multiple questions regarding care, especially regarding medications used and if pt is alert and oriented yet. attempted to answer questions as best i could. family said they would call back for an update after rounds around 10-11.
--- NOTE | 2019-07-12 06:30 | NUR ---
Patient in room CICU 2008. I have received report from Brett GOTTLIEB and had the opportunity to ask questions and assume patient care. Pt resting on fred bed, propped with pillows to offload pressure. Pt mechanically ventilated, overbreathing vent and restless, moving all extremities, especially legs. Pt slow to follow commands but responds to name and is attempting to track and squeeze as directed. Pt edematous, not currently on any vasopressors.
--- NOTE | 2019-07-12 06:33 | NUR ---
Problems reprioritized. Patient report given, questions answered & plan of care reviewed with Norma RN.
[2019-07-12] MEDS: LORazepam 2 mg/ml vial IV PRN (06:48)
[2019-07-12] MEDS: K, MAG and/or Phos replacement - Verify level? MC SCH (08:00)
[2019-07-12] MEDS: dextrose 50%-water 50ml dispensing syringe IV PRN (08:04)
[2019-07-12] MEDS: MVI, adult No.4 with vit. K 10 ML in dextrose 5% water 500ml 500 ML IV SCH ×2 (08:15)
[2019-07-12] MEDS: thiamine inj. 100 MG, folic acid inj. 2 MG in normal saline 100ml IV soln 100 ML IV SCH (08:16)
[2019-07-12] MEDS: CefTRIAXone 2gm/D5W 50ml 50 ML IV SCH (08:16)
[2019-07-12] MEDS: lactobacillus rhamnosus 10,000 MMU CELLS/CAPSULE OGT SCH ×2 (08:17→20:29)
[2019-07-12] MEDS: carVEDilol 3.125mg tablet OGT SCH ×2 (08:17→20:29)
--- NOTE | 2019-07-12 09:12 | NUR ---
Dr. Steen in to see pt, aware of pt's family requesting call from MD. New orders received. Pt working with Physical Therapy at this time, sitting up to dangle, pt is following commands given by PT.
[2019-07-12] MEDS: enoxaparin 60mg/0.6ml syringe SUBCUT SCH (09:29)
[2019-07-12] MEDS: enoxaparin 30mg/0.3ml syringe SUBCUT SCH (09:30)
[2019-07-12] MEDS: OLANZapine 2.5MG tablet PO SCH (09:32)
[2019-07-12] MEDS: pantoprazole 40 MG vial IV SCH (09:35)
[2019-07-12] MEDS: acetaminophen 325mg/10.15ml oral unit dose solution OGT PRN (09:46)
[2019-07-12] MEDS ORDERED: albumin (human) 25% 100 ML IV solution IV ONE ×2 (10:40→17:00)
--- NOTE | 2019-07-12 11:48 | NUR ---
Reassessment: tube feedings tolerated at goal rate of 55 ml/hr, GRV are WNL. Last BM 07/11. Patient is intubated, sedated. Receiving banana bag in view of EtOH. Patient had presented from [facility] for ALOC, acute renal failure, and mild hyperkalemia per ED note. Had been found down at residence. History of EtOH. Admitted here with sepsis, AMS, acute respiratory failure. Has a colostomy present, appears to have high output with 1765 ml out on 07/11, he is receiving lactobacillus, he is taking an antibiotic that may cause diarrhea, may benefit from anti-diarrheal, will discuss with MD. Will continue to follow. Recommend: 1. continuous tube feeding with Nepro per MD, recommend goal rate of 55 ml/hr to provide total volume 1320 ml, 2376 cals, 106 g protein, and 964 ml water 2. prealbumin q friday and , daily wts 3. When extubated, advance diet as medically indicated to heart healthy 4. Continue banana bag d/t EtOH history 5. May benefit from anti-diarrheal in view of high colostomy output 6. Continue water flush 250 ml q 6 hours per Addendum: 07/12/19 at [address] Amended: Links added.
[2019-07-12] MEDS: normal saline 1000ml 1,000 ML IV SCH ×2 (15:25→23:46)
[2019-07-12] MEDS: NORepinephrine 8mg/ 250ml NS 250 ML IV SCH (16:00)
--- NOTE | 2019-07-12 18:26 | NUR ---
Problems reprioritized. Patient report given, questions answered & plan of care reviewed with Lucila GOTTLIEB. Family was updated throughout the day in regards to pt's condition.
--- NOTE | 2019-07-12 18:30 | NUR ---
Patient in room CICU 2008. I have received report from Norma GOTTLIEB, and had the opportunity to ask questions and assume patient care.
[2019-07-12] MEDS: dexmedetomidin/NS 400mcg/100ml 100 ML IV SCH (18:47)
--- NOTE | 2019-07-12 19:30 | NUR ---
PT is intubated and mechanically vented, tolerating settings well. O2 sat >98%. PT sedated with Fentanyl and Precedex, tolerating well. PT has colostomy to LLQ, CDI, stoma is pink with no bleeding noted. TF is running to OG, PT has been tolerating well. Small in place draining to gravity. Bed is locked and low. Bilat soft wrist restraints in place and secure. Will continue to monitor.
[2019-07-12] MEDS ORDERED: furosemide 40mg/4ml inj IV ONE (20:00)
[2019-07-12] MEDS: traZODone 50mg tablet OGT SCH (20:30)
[2019-07-12] MEDS: insulin glargine (Lantus) pen - multi-dose SQ SCH (20:40)
[2019-07-12] MEDS: FENTANYL-0.9 % NACL/PF 100 ML IV PRN (20:48)
--- NOTE | 2019-07-12 22:30 | NUR ---
PT has had periods of restlessness, titrating Fentanyl and Precedex up as tolerated d/t continued tachypnea. VSS. Bed is locked and low. Bilat soft wrist restraints remain in place and secure. Will continue to monitor.
[2019-07-13] VITALS (24 sets, daily range): BP systolic 94–160; BP diastolic 48–84
[2019-07-13] MEDS: dexmedetomidin/NS 400mcg/100ml 100 ML IV SCH ×5 (00:53→20:35)
[2019-07-13] MEDS: amiodarone/D5 360MG/200ML BAG 200 ML IV SCH (01:32)
[2019-07-13] MEDS: mineral oil/petrolatum ophthal oint EACHEYE SCH ×4 (02:00→20:00)
--- NOTE | 2019-07-13 02:30 | NUR ---
PT continues to rest and have intermittent periods of restlessness. VSS. Bed is locked and low. Bilat soft wrist restraints remain in place and secure. Will continue to monitor.
[2019-07-13 02:31] LABS: BASOPHILS % (AUTO) 0.1 % (0-1); EOSINOPHILS # (AUTO) 0.1 X10'3 (0-0.9); EOSINOPHILS % (AUTO) 0.3 % (0-6); HEMATOCRIT 27.8 % (42.0-52.0); HEMOGLOBIN 9.6 g/dl (14.0-17.9); LYMPHOCYTES # (AUTO) 0.4 X10'3 (1.1-4.8); LYMPHOCYTES % (AUTO) 2.3 % (21-51); MEAN CORPUSCULAR HEMOGLOBIN 33.9 PG (27.0-31.0); MEAN CORPUSCULAR HGB CONC 34.4 g/dL (33.0-36.5); MEAN CORPUSCULAR VOLUME 98.5 FL (78-98); MEAN PLATELET VOLUME 8.1 FL (7.4-10.4); MONOCYTES # (AUTO) 0.3 X10'3 (0-0.9); MONOCYTES % (AUTO) 1.7 % (2-12); NEUTROPHILS # (AUTO) 17.5 X10'3 (1.8-7.7); NEUTROPHILS % (AUTO) 95.6 % (42-75); PLATELET COUNT 106 X10'3 (140-440); RED BLOOD COUNT 2.82 X10'6 (4.70-6.10); RED CELL DISTRIBUTION WIDTH 13.5 % (11.5-14.5); WHITE BLOOD COUNT 18.3 X10'3 (4.5-11.0)
[2019-07-13 02:44] LABS: ALANINE AMINOTRANSFERASE 57 U/L (12-78); ALBUMIN 2.6 G/DL (3.4-5.0); ALBUMIN/GLOBULIN RATIO 0.7 (1.1-1.5); ALKALINE PHOSPHATASE 101 IU/L (46-116); ANION GAP 10 (8-16); ASPARTATE AMINO TRANSFERASE 21 U/L (10-37); BILIRUBIN,TOTAL 0.8 MG/DL (0.1-1.0); BLOOD UREA NITROGEN 48 MG/DL (7-18); BUN/CREATININE RATIO 27.4 (5.4-32.0); CALCIUM 7.8 MG/DL (8.5-10.1); CHLORIDE 113 MMOL/L (99-107); CREATININE 1.75 MG/DL (0.60-1.10); GLUCOSE 92 MG/DL (70-104); MAGNESIUM 1.4 MG/DL (1.5-2.4); PHOSPHORUS 2.5 MG/DL (2.3-4.5); SODIUM 145 MMOL/L (135-145); TOTAL CARBON DIOXIDE 21.7 MMOL/L (24-32); TOTAL PROTEIN 6.2 G/DL (6.4-8.2); TRIGLYCERIDES 79 MG/DL (20-135); eGFR 38 ML/MIN
[2019-07-13] MEDS ORDERED: magnesium 2GM in 50ml NS 50 ML IV PRN (02:55)
[2019-07-13] MEDS: potassium Cl 20mEq/100mL bag 100 ML IV PRN ×4 (03:03→07:00)
[2019-07-13 03:46] LABS: ABG BASE EXCESS -4.6 mmol/L (-2.0-3.0); ABG HCO3 18.7 mmol/L (22.0-26.0); ABG OXYGEN SATURATION 97.4 % (95-98); ABG PCO2 (T) 29.9 mmHg (35.0-45.0); ABG PH (T) 7.418 (7.350-7.450); ABG PO2 (T) 98.9 mmHg (83-108); ALLEN'S TEST Positive; FCOHb 0.3 % (0.5-1.5); FMetHb 0.2 % (0.3-1.12); FO2Hb 96.9 % (94-100); MINUTE VOLUME 20 L/min; PATIENT TEMPERATURE 38.2; PEEP 5 cm H2O; RESPIRATORY RATE 14 b/min; RESPIRATORY RATE (OBSERVED) 34 b/min; TIDAL VOLUME 500 mL; TOTAL HEMOGLOBIN 10.2 G/dl (14.0-17.9)
--- NOTE | 2019-07-13 06:00 | NUR ---
Patient in room CICU 2008. I have received report from BULL Gaytan and had the opportunity to ask questions and assume patient care.
--- NOTE | 2019-07-13 06:39 | NUR ---
Problems reprioritized. Patient report given, questions answered & plan of care reviewed with Luz GOTTLIEB.
[2019-07-13] MEDS: lactobacillus rhamnosus 10,000 MMU CELLS/CAPSULE OGT SCH ×2 (07:06→20:35)
[2019-07-13] MEDS: OLANZapine 2.5MG tablet PO SCH (07:06)
[2019-07-13] MEDS: enoxaparin 60mg/0.6ml syringe SUBCUT SCH (07:06)
[2019-07-13] MEDS: enoxaparin 30mg/0.3ml syringe SUBCUT SCH (07:06)
[2019-07-13] MEDS: carVEDilol 3.125mg tablet OGT SCH ×2 (07:06→20:35)
[2019-07-13] MEDS: CefTRIAXone 2gm/D5W 50ml 50 ML IV SCH (07:06)
[2019-07-13] MEDS: pantoprazole 40 MG vial IV SCH (07:15)
[2019-07-13] MEDS: K, MAG and/or Phos replacement - Verify level? MC SCH (08:00)
[2019-07-13] MEDS: insulin regular, human vial - multi-dose SQ SCH ×3 (09:10→20:49)
[2019-07-13] MEDS: FENTANYL-0.9 % NACL/PF 100 ML IV PRN (09:33)
[2019-07-13] MEDS ORDERED: amiodarone 200mg tablet PO ONE (11:35)
--- NOTE | 2019-07-13 12:00 | NUR ---
Per MD orders, pt to possibly be extubated if tolerating chair position adequately. When pt put in chair position, he became extremely tachypnic with RR in mid to high 40s. Pt was extremely anxious and moving constantly, attempting to pull out of restraints and sliding down in bed. Was not able to follow commands at this time or respond to verbal commands. After 10 mins, pt reclined back to 45 degree angle and anxiety as well as RR subsided significantly. MD aware and stated we will attempt chair position again tomorrow.
--- NOTE | 2019-07-13 13:00 | NUR ---
Colostomy bag changed today due to leaking
--- NOTE | 2019-07-13 14:13 | NUR ---
Reassessment: tube feedings tolerated at goal rate of 55 ml/hr, GRV are WNL. Patient is intubated, sedated. Receiving banana bag in view of EtOH. Patient had presented from [facility] for ALOC, acute renal failure, and mild hyperkalemia per ED note. Had been found down at residence. History of EtOH. Admitted here with sepsis, AMS, acute respiratory failure. Has a colostomy present, stool output has been decreasing from before now with 725 ml out 05/11 and per bedside RN the stool output today is moderate, he is receiving lactobacillus, he is taking an antibiotic that may cause diarrhea, may benefit from antidiarrheal if output increases. Will continue to follow. Recommend: 1. continuous tube feeding with Nepro per MD, recommend goal rate of 55 ml/hr to provide total volume 1320 ml, 2376 cals, 106 g protein, and 964 ml water 2. prealbumin q friday and , daily wts 3. When extubated, advance diet as medically indicated to heart healthy 4. Continue banana bag d/t EtOH history 5. May benefit from anti-diarrheal if with high colostomy output 6. Continue water flush 250 ml q 6 hours per Addendum: 07/13/19 at [address] Amended: Links added.
[2019-07-13 15:43] LABS: MAGNESIUM 1.8 MG/DL (1.5-2.4); POTASSIUM 3.5 MMOL/L (3.5-5.1)
--- NOTE | 2019-07-13 18:11 | NUR ---
Problems reprioritized. Patient report given, questions answered & plan of care reviewed with BULL Gaytan.
--- NOTE | 2019-07-13 18:22 | NUR ---
Patient in room CICU 2009. I have received report from Luz GOTTLIEB, and had the opportunity to ask questions and assume patient care.
--- NOTE | 2019-07-13 19:45 | NUR ---
PT is intubated and mechanically vented, tolerating settings well. O2 sat >98%. PT sedated with Fentanyl and Precedex, tolerating well. PT has colostomy to RLQ, CDI, stoma is pink with no bleeding noted. TF is running to OG, PT has been tolerating well. Small in place draining to gravity. Bed is locked and low. Bilat soft wrist restraints in place and secure. Will continue to monitor.
[2019-07-13] MEDS: amiodarone 200mg tablet PO SCH (20:35)
[2019-07-13] MEDS: OLANZAPINE 5 MG TABLET PO SCH (20:38)
[2019-07-13] MEDS: traZODone 50mg tablet OGT SCH (20:38)
[2019-07-13] MEDS: insulin glargine (Lantus) pen - multi-dose SQ SCH (20:51)
--- NOTE | 2019-07-13 23:00 | NUR ---
PT resting with no s/s of distress noted at this time. VSS. Bed is locked and low. Bilat soft wrist restraints remain in place and secure. Will continue to monitor.
[2019-07-13] MEDS: normal saline 1000ml 1,000 ML IV SCH (23:10)
[2019-07-14] VITALS (24 sets, daily range): BP systolic 109–171; BP diastolic 48–73
[2019-07-14] MEDS: dexmedetomidin/NS 400mcg/100ml 100 ML IV SCH ×3 (00:07→08:06)
[2019-07-14] MEDS: FENTANYL-0.9 % NACL/PF 100 ML IV PRN (01:09)
[2019-07-14] MEDS: mineral oil/petrolatum ophthal oint EACHEYE SCH ×4 (02:23→20:00)
[2019-07-14] MEDS: insulin regular, human vial - multi-dose SQ SCH (02:24)
[2019-07-14 02:27] LABS: BASOPHILS % (AUTO) 0.2 % (0-1); EOSINOPHILS # (AUTO) 0.1 X10'3 (0-0.9); EOSINOPHILS % (AUTO) 0.8 % (0-6); HEMATOCRIT 26.5 % (42.0-52.0); LYMPHOCYTES # (AUTO) 0.3 X10'3 (1.1-4.8); MEAN CORPUSCULAR HEMOGLOBIN 33.7 PG (27.0-31.0); MEAN CORPUSCULAR VOLUME 99.1 FL (78-98); MEAN PLATELET VOLUME 7.8 FL (7.4-10.4); MONOCYTES # (AUTO) 0.3 X10'3 (0-0.9); MONOCYTES % (AUTO) 2.1 % (2-12); NEUTROPHILS # (AUTO) 15.1 X10'3 (1.8-7.7); NEUTROPHILS % (AUTO) 94.9 % (42-75); PLATELET COUNT 129 X10'3 (140-440); RED BLOOD COUNT 2.68 X10'6 (4.70-6.10); RED CELL DISTRIBUTION WIDTH 13.6 % (11.5-14.5); WHITE BLOOD COUNT 15.9 X10'3 (4.5-11.0)
[2019-07-14 02:42] LABS: ALANINE AMINOTRANSFERASE 43 U/L (12-78); ALBUMIN 1.9 G/DL (3.4-5.0); ALBUMIN/GLOBULIN RATIO 0.5 (1.1-1.5); ALKALINE PHOSPHATASE 119 IU/L (46-116); ANION GAP 10 (8-16); ASPARTATE AMINO TRANSFERASE 19 U/L (10-37); BILIRUBIN,TOTAL 0.9 MG/DL (0.1-1.0); BLOOD UREA NITROGEN 51 MG/DL (7-18); BUN/CREATININE RATIO 29.5 (5.4-32.0); CHLORIDE 115 MMOL/L (99-107); CREATININE 1.73 MG/DL (0.60-1.10); GLUCOSE 133 MG/DL (70-104); MAGNESIUM 1.8 MG/DL (1.5-2.4); PHOSPHORUS 2.7 MG/DL (2.3-4.5); POTASSIUM 3.3 MMOL/L (3.5-5.1); SODIUM 145 MMOL/L (135-145); TOTAL CARBON DIOXIDE 20.5 MMOL/L (24-32); TOTAL PROTEIN 5.4 G/DL (6.4-8.2); eGFR 38 ML/MIN
--- NOTE | 2019-07-14 03:00 | NUR ---
PT continues to rest with intermittent periods of restlessness. VSS. Bed is locked and low. Bilat soft wrist restraints remain in place and secure. Will continue to monitor.
[2019-07-14 04:15] LABS: ABG BASE EXCESS -6.6 mmol/L (-2.0-3.0); ABG HCO3 16.9 mmol/L (22.0-26.0); ABG OXYGEN SATURATION 96.9 % (95-98); ABG PCO2 (T) 28.9 mmHg (35.0-45.0); ABG PH (T) 7.391 (7.350-7.450); ABG PO2 (T) 101.6 mmHg (83-108); ALLEN'S TEST Positive; FCOHb 0.2 % (0.5-1.5); FMetHb 0.1 % (0.3-1.12); FO2Hb 96.6 % (94-100); MINUTE VOLUME 15 L/min; PATIENT TEMPERATURE 38.2; PEEP 5 cm H2O; RESPIRATORY RATE 14 b/min; RESPIRATORY RATE (OBSERVED) 26 b/min; TIDAL VOLUME 500 mL
[2019-07-14] MEDS: potassium Cl 20mEq/100mL bag 100 ML IV PRN ×3 (04:28→21:36)
--- NOTE | 2019-07-14 06:37 | NUR ---
Problems reprioritized. Patient report given, questions answered & plan of care reviewed with Vick GOTTLIEB.
[2019-07-14] MEDS: amiodarone 200mg tablet PO SCH ×2 (07:27→20:35)
[2019-07-14] MEDS: OLANZAPINE 5 MG TABLET PO SCH ×2 (07:27→20:35)
[2019-07-14] MEDS: carVEDilol 3.125mg tablet OGT SCH ×2 (07:27→20:35)
[2019-07-14] MEDS: lactobacillus rhamnosus 10,000 MMU CELLS/CAPSULE OGT SCH ×2 (07:27→20:35)
[2019-07-14] MEDS: CefTRIAXone 2gm/D5W 50ml 50 ML IV SCH (07:28)
[2019-07-14] MEDS: enoxaparin 30mg/0.3ml syringe SUBCUT SCH (07:29)
[2019-07-14] MEDS: K, MAG and/or Phos replacement - Verify level? MC SCH (08:00)
[2019-07-14] MEDS: enoxaparin 60mg/0.6ml syringe SUBCUT SCH (08:06)
[2019-07-14] MEDS: pantoprazole 40 MG vial IV SCH (10:29)
--- NOTE | 2019-07-14 11:06 | NUR ---
Reassessment: tube feedings tolerated at goal rate of 55 ml/hr, GRV are WNL. Pt intubated, sedated. Per MD at rounds tube feedings will be held for an hour prior to attempting extubation. Receiving banana bag in view of EtOH. Patient had presented from [facility] for ALOC, acute renal failure, and mild hyperkalemia per ED note. Had been found down at residence. History of EtOH. Admitted here with sepsis, AMS, acute respiratory failure. Has a colostomy present, stool output down to 550 ml out yesterday, he is receiving lactobacillus, he is taking an antibiotic that may cause diarrhea, may benefit from antidiarrheal if output increases. Will continue to follow. Recommend: 1. While intubated, continuous tube feeding with Nepro per MD, recommend goal rate of 55 ml/hr to provide total volume 1320 ml, 2376 cals, 106 g protein, and 964 ml water 2. prealbumin q friday and , daily wts 3. When extubated, advance diet as medically indicated to heart healthy 4. Continue banana bag d/t EtOH history 5. May benefit from anti-diarrheal if with high colostomy output 6. Continue water flush 250 ml q 6 hours per MD Addendum: 07/14/19 at [address] Amended: Links added.
[2019-07-14] MEDS ORDERED: labetalol 20mg/4ml (5mg/ml) syringe IV PRN (17:20)
[2019-07-14 17:50] LABS: MAGNESIUM 1.7 MG/DL (1.5-2.4); POTASSIUM 3.4 MMOL/L (3.5-5.1)
--- NOTE | 2019-07-14 18:30 | NUR ---
Patient in room CICU 2008. I have received report from Vick GOTTLIEB, and had the opportunity to ask questions and assume patient care.
--- NOTE | 2019-07-14 19:30 | NUR ---
PT resting with no s/s of distress noted at this time. VSS. PT is receiving 2L O2 to NC and tolerating well, O2 sat >95%. Small in place draining to gravity. Bed is locked and low. Call light is within reach. Will continue to monitor.
[2019-07-14] MEDS: insulin glargine (Lantus) pen - multi-dose SQ SCH (21:00)
[2019-07-14] MEDS: traZODone 50mg tablet OGT SCH (21:00)
[2019-07-14] MEDS: ALPRAZolam 0.25mg tablet OGT PRN (22:50)
--- NOTE | 2019-07-14 23:00 | NUR ---
PT continues to rest with no s/s of distress noted at this time. VSS. Bed is locked and low. Call light is within reach. Will continue to monitor.
[2019-07-15] VITALS (23 sets, daily range): BP systolic 107–178; BP diastolic 55–81
[2019-07-15] MEDS: acetaminophen 325mg tablet PO PRN ×2 (00:40→08:28)
[2019-07-15] MEDS: mineral oil/petrolatum ophthal oint EACHEYE SCH ×2 (02:00→08:00)
[2019-07-15] MEDS: HYDROcodone/acetaminophen 10/325mg tab PO PRN ×2 (02:10→13:03)
[2019-07-15 02:57] LABS: BASOPHILS % (AUTO) 0.3 % (0-1); EOSINOPHILS # (AUTO) 0.1 X10'3 (0-0.9); EOSINOPHILS % (AUTO) 0.6 % (0-6); HEMATOCRIT 26.6 % (42.0-52.0); LYMPHOCYTES # (AUTO) 0.4 X10'3 (1.1-4.8); LYMPHOCYTES % (AUTO) 2.6 % (21-51); MEAN CORPUSCULAR HEMOGLOBIN 33.4 PG (27.0-31.0); MEAN CORPUSCULAR HGB CONC 33.7 g/dL (33.0-36.5); MEAN CORPUSCULAR VOLUME 99.1 FL (78-98); MEAN PLATELET VOLUME 7.7 FL (7.4-10.4); MONOCYTES # (AUTO) 0.5 X10'3 (0-0.9); MONOCYTES % (AUTO) 3.6 % (2-12); NEUTROPHILS # (AUTO) 13.3 X10'3 (1.8-7.7); NEUTROPHILS % (AUTO) 92.9 % (42-75); PLATELET COUNT 196 X10'3 (140-440); RED BLOOD COUNT 2.69 X10'6 (4.70-6.10); RED CELL DISTRIBUTION WIDTH 13.6 % (11.5-14.5); WHITE BLOOD COUNT 14.3 X10'3 (4.5-11.0)
[2019-07-15 03:08] LABS: TOTAL PROTEIN,URINE RANDOM 102.8 MG/DL
[2019-07-15 03:09] LABS: CLARITY,URINE SLIGHTLY CLOUDY (Clear); COLOR,URINE YELLOW (Yellow); GLUCOSE, URINE NEGATIVE (Neg); KETONES,URINE TRACE mg/dl (Neg); LEUKOCYTE ESTERASE ,URINE NEGATIVE (Neg); NITRITES, URINE NEGATIVE (Neg); OCCULT BLOOD,URINE MODERATE (Neg); PH,URINE 5.5 (4.8-8.0); PROTEIN,URINE 30 mg/dl (Neg); UROBILINOGEN,URINE 0.2 E.U/dL (0.2-1.0)
[2019-07-15 03:09] LABS: ALANINE AMINOTRANSFERASE 54 U/L (12-78); ALBUMIN 1.9 G/DL (3.4-5.0); ALBUMIN/GLOBULIN RATIO 0.5 (1.1-1.5); ALKALINE PHOSPHATASE 105 IU/L (46-116); ANION GAP 14 (8-16); ASPARTATE AMINO TRANSFERASE 40 U/L (10-37); BLOOD UREA NITROGEN 42 MG/DL (7-18); BUN/CREATININE RATIO 24.3 (5.4-32.0); CHLORIDE 115 MMOL/L (99-107); CREATININE 1.73 MG/DL (0.60-1.10); GLUCOSE 123 MG/DL (70-104); MAGNESIUM 1.8 MG/DL (1.5-2.4); PHOSPHORUS 2.3 MG/DL (2.3-4.5); POTASSIUM 3.7 MMOL/L (3.5-5.1); PREALBUMIN 9.5 MG/DL (19-36); SODIUM 148 MMOL/L (135-145); TOTAL CARBON DIOXIDE 18.6 MMOL/L (24-32); TOTAL PROTEIN 5.8 G/DL (6.4-8.2); eGFR 38 ML/MIN
[2019-07-15 03:15] LABS: UA COLLECTION TYPE NON-SPECIFIED
[2019-07-15 03:17] LABS: AMORPHOUS URATES 2+; BACTERIA,URINE 1+ /HPF (Neg); MUCUS STRANDS NONE SEEN /LPF (Neg); SQUAMOUS EPITHELIAL CELL,UR NONE SEEN /LPF (FEW)
[2019-07-15 03:32] LABS: UA EOSINOPHILS NO EOS /HPF
[2019-07-15] MEDS: normal saline 1000ml 1,000 ML IV SCH (04:27)
--- NOTE | 2019-07-15 06:36 | NUR ---
Problems reprioritized. Patient report given, questions answered & plan of care reviewed with William GOTTLIEB.
[2019-07-15] MEDS: K, MAG and/or Phos replacement - Verify level? MC SCH (08:00)
[2019-07-15] MEDS: amiodarone 200mg tablet PO SCH ×2 (08:28→19:33)
[2019-07-15] MEDS: OLANZAPINE 5 MG TABLET PO SCH ×2 (08:28→19:33)
[2019-07-15] MEDS: carVEDilol 3.125mg tablet OGT SCH ×2 (08:29→19:33)
[2019-07-15] MEDS: lisinopril 10 MG tablet PO SCH (08:29)
[2019-07-15] MEDS: pantoprazole 40 MG vial IV SCH (08:29)
[2019-07-15] MEDS: lactobacillus rhamnosus 10,000 MMU CELLS/CAPSULE OGT SCH ×2 (08:29→19:33)
[2019-07-15] MEDS: enoxaparin 60mg/0.6ml syringe SUBCUT SCH (08:30)
[2019-07-15] MEDS: enoxaparin 30mg/0.3ml syringe SUBCUT SCH (08:30)
[2019-07-15] MEDS: CefTRIAXone 2gm/D5W 50ml 50 ML IV SCH (08:31)
[2019-07-15] MEDS: dextrose 5%-water 1,000 ML IV SCH (11:28)
--- NOTE | 2019-07-15 12:04 | NUR ---
Reassessment: Patient extubated yesterday. Seen by CHAR BELT OPERATOR this morning, recommends mechanical soft diet with chopped foods and thin liquids. Tube feedings have stopped, no OG tube. Pending PO Intake and documentation. Patient's sodium is 148, per MD normal saline was changed to dextrose at 75 ml/hr. Patient had presented from [facility] for ALOC, acute renal failure, and mild hyperkalemia per ED note. Had been found down at residence. History of EtOH. Admitted here with sepsis, AMS, acute respiratory failure. Has a colostomy present, stool output down to 700 ml out yesterday, he is receiving lactobacillus, he is taking an antibiotic that may cause diarrhea, may benefit from antidiarrheal if output increases. Will continue to follow. Recommend: 1. Continue mechanical soft diet with chopped foods, thin liquid per CHAR BELT OPERATOR recs 2. May benefit from anti-diarrheal if with high colostomy output 3. Monitor PO intake, may need ONS if with suboptimal PO intake 4. weight per rx 5. Encourage hydration Addendum: 07/15/19 at [address] Amended: Links added.
--- NOTE | 2019-07-15 18:30 | NUR ---
Patient in room CICU 2008. I have received report from William GOTTLIEB and had the opportunity to ask questions and assume patient care.
[2019-07-15] MEDS: insulin glargine (Lantus) pen - multi-dose SQ SCH (21:00)
[2019-07-15] MEDS: traZODone 50mg tablet OGT SCH (21:23)
[2019-07-16] VITALS (24 sets, daily range): BP systolic 121–160; BP diastolic 47–98
[2019-07-16] MEDS: acetaminophen 325mg tablet PO PRN (00:18)
[2019-07-16] MEDS: dextrose 5%-water 1,000 ML IV SCH ×3 (00:19→15:52)
[2019-07-16] MEDS: LORazepam 2 mg/ml vial IV PRN (02:44)
[2019-07-16 05:36] LABS: BASOPHILS % (AUTO) 0.4 % (0-1); EOSINOPHILS # (AUTO) 0.1 X10'3 (0-0.9); EOSINOPHILS % (AUTO) 0.6 % (0-6); HEMATOCRIT 24.5 % (42.0-52.0); HEMOGLOBIN 8.6 g/dl (14.0-17.9); LYMPHOCYTES # (AUTO) 0.7 X10'3 (1.1-4.8); LYMPHOCYTES % (AUTO) 6.8 % (21-51); MEAN CORPUSCULAR HEMOGLOBIN 34.4 PG (27.0-31.0); MEAN CORPUSCULAR HGB CONC 35.1 g/dL (33.0-36.5); MEAN CORPUSCULAR VOLUME 98.1 FL (78-98); MEAN PLATELET VOLUME 7.3 FL (7.4-10.4); MONOCYTES # (AUTO) 0.4 X10'3 (0-0.9); MONOCYTES % (AUTO) 3.3 % (2-12); NEUTROPHILS # (AUTO) 9.7 X10'3 (1.8-7.7); NEUTROPHILS % (AUTO) 88.9 % (42-75); PLATELET COUNT 248 X10'3 (140-440); RED CELL DISTRIBUTION WIDTH 13.3 % (11.5-14.5)
[2019-07-16 05:48] LABS: ALANINE AMINOTRANSFERASE 46 U/L (12-78); ALBUMIN 1.9 G/DL (3.4-5.0); ALBUMIN/GLOBULIN RATIO 0.5 (1.1-1.5); ALKALINE PHOSPHATASE 93 IU/L (46-116); ANION GAP 8 (8-16); ASPARTATE AMINO TRANSFERASE 26 U/L (10-37); BILIRUBIN,TOTAL 1.1 MG/DL (0.1-1.0); BLOOD UREA NITROGEN 32 MG/DL (7-18); BUN/CREATININE RATIO 19.6 (5.4-32.0); CALCIUM 7.7 MG/DL (8.5-10.1); CHLORIDE 115 MMOL/L (99-107); CREATININE 1.63 MG/DL (0.60-1.10); GLUCOSE 159 MG/DL (70-104); MAGNESIUM 1.7 MG/DL (1.5-2.4); PHOSPHORUS 1.8 MG/DL (2.3-4.5); POTASSIUM 3.2 MMOL/L (3.5-5.1); SODIUM 146 MMOL/L (135-145); TOTAL CARBON DIOXIDE 22.7 MMOL/L (24-32); TOTAL PROTEIN 5.6 G/DL (6.4-8.2); eGFR 41 ML/MIN
[2019-07-16] MEDS: potassium Cl 20mEq/100mL bag 100 ML IV PRN ×2 (05:57→07:38)
--- NOTE | 2019-07-16 06:18 | NUR ---
Problems reprioritized. Patient report given, questions answered & plan of care reviewed with William GOTTLIEB.
[2019-07-16] MEDS: K, MAG and/or Phos replacement - Verify level? MC SCH (08:00)
[2019-07-16 08:25] LABS: ABG HCO3 18.1 mmol/L (22.0-26.0); ABG OXYGEN SATURATION 92.5 % (95-98); ABG PCO2 (T) 25.4 mmHg (35.0-45.0); ABG PH (T) 7.476 (7.350-7.450); ABG PO2 (T) 65.8 mmHg (83-108); FCOHb 0.1 % (0.5-1.5); FMetHb 0.2 % (0.3-1.12); FO2Hb 92.2 % (94-100); PATIENT TEMPERATURE 38.4; RESPIRATORY RATE (OBSERVED) 33 b/min; TOTAL HEMOGLOBIN 9.9 G/dl (14.0-17.9)
[2019-07-16] MEDS: lactobacillus rhamnosus 10,000 MMU CELLS/CAPSULE OGT SCH ×2 (09:30→19:11)
[2019-07-16] MEDS: OLANZAPINE 5 MG TABLET PO SCH (09:30)
[2019-07-16] MEDS: amiodarone 200mg tablet PO SCH ×2 (09:31→19:11)
[2019-07-16] MEDS: carVEDilol 3.125mg tablet OGT SCH ×2 (09:31→19:11)
[2019-07-16] MEDS: lisinopril 10 MG tablet PO SCH (09:31)
[2019-07-16] MEDS: enoxaparin 60mg/0.6ml syringe SUBCUT SCH ×2 (09:32→19:12)
[2019-07-16] MEDS: pantoprazole 40 MG vial IV SCH (09:33)
[2019-07-16] MEDS: enoxaparin 30mg/0.3ml syringe SUBCUT SCH ×2 (09:33→19:12)
[2019-07-16] MEDS: CefTRIAXone 2gm/D5W 50ml 50 ML IV SCH (09:35)
--- NOTE | 2019-07-16 09:52 | NUR ---
Patient spit out a pill and a half. Unable to identify what was spit out
[2019-07-16] MEDS ORDERED: acetaminophen 1,000mg/100ml IV 100 ML IV ONE (11:35)
[2019-07-16 13:07] LABS: CREATINE KINASE 41 U/L (39-308)
--- NOTE | 2019-07-16 13:17 | NUR ---
Corepack placed and patient pulled it out. Tried again but patient not cooperating and was becoming aggressive and threatening. notified
[2019-07-16 13:21] LABS: POTASSIUM 3.4 MMOL/L (3.5-5.1)
--- NOTE | 2019-07-16 15:57 | NUR ---
Reassessment: Poor PO intake after extubation 0-25% of meals. Recommend sending ONS in view of suboptimal PO intake. Patient's sodium is 146, receiving dextrose at 75 ml/hr. Patient had presented from [facility] for ALOC, acute renal failure, and mild hyperkalemia per ED note. Had been found down at residence. History of EtOH. Admitted here with sepsis, AMS, acute respiratory failure. Will continue to follow. Recommend: 1. Continue mechanical soft diet with chopped foods, thin liquid per JEWEL HOLE GAUGER recs 2. May benefit from anti-diarrheal if with high colostomy output 3. Ensure enlive with meals 4. weight per rx 5. Encourage hydration Addendum: 07/16/19 at [address] Amended: Links added.
[2019-07-16] MEDS: potassium CL 10mEq/100ml bag 100 ML IV PRN ×3 (18:17→20:35)
--- NOTE | 2019-07-16 18:30 | NUR ---
Patient in room CICU 2008. I have received report from William GOTTLIEB and had the opportunity to ask questions and assume patient care.
--- NOTE | 2019-07-16 19:30 | NUR ---
Pt is in bed, confused (thinking he is in a courthouse in [place]). He is somewhat calm in his conversations with me, but he is expressing how he feels like he is innocent and being held against his will. After explaining to him that he is at the hospital in [place], [place] he becomes less anxious, only to quickly return to his delusion that he is in [place]. Pt is sat up high in bed, and given his pills with thickened water. He takes his pills easily, one at a time, without any choking or gagging. Pt is given some of his dinner, with all of the pieces cut up for easy chewing. He consumes half of his chicken Parmesan, all of his pears, and all of his sherbert ice cream, as well as two bites of apple sauce, and one bite of pasta. He lets me know that he has had enough to eat. Pt's HR is 93 NSR with occasional PACs and fairly frequent PVCs in runs. BP is 139/62 post medication. O2 is 94 on Room Air with respirations in the mid to high 20s. Pt keeps on stating that he is very tired, and is educated that he needs to attempt to sleep.
[2019-07-16] MEDS: Melatonin 3mg tablet PO SCH (20:35)
[2019-07-16] MEDS: insulin glargine (Lantus) pen - multi-dose SQ SCH (21:00)
[2019-07-17] VITALS (23 sets, daily range): BP systolic 70–152; BP diastolic 38–72
[2019-07-17] MEDS: potassium CL 10mEq/100ml bag 100 ML IV PRN (00:18)
[2019-07-17 06:22] LABS: BASOPHILS % (AUTO) 0.6 % (0-1); EOSINOPHILS # (AUTO) 0.2 X10'3 (0-0.9); EOSINOPHILS % (AUTO) 2.2 % (0-6); HEMATOCRIT 22.1 % (42.0-52.0); HEMOGLOBIN 7.7 g/dl (14.0-17.9); LYMPHOCYTES # (AUTO) 0.8 X10'3 (1.1-4.8); MEAN CORPUSCULAR HEMOGLOBIN 34.5 PG (27.0-31.0); MEAN CORPUSCULAR VOLUME 98.5 FL (78-98); MEAN PLATELET VOLUME 7.4 FL (7.4-10.4); MONOCYTES # (AUTO) 0.4 X10'3 (0-0.9); MONOCYTES % (AUTO) 5.1 % (2-12); NEUTROPHILS # (AUTO) 6.4 X10'3 (1.8-7.7); NEUTROPHILS % (AUTO) 82.1 % (42-75); PLATELET COUNT 260 X10'3 (140-440); RED BLOOD COUNT 2.24 X10'6 (4.70-6.10); RED CELL DISTRIBUTION WIDTH 13.2 % (11.5-14.5); WHITE BLOOD COUNT 7.8 X10'3 (4.5-11.0)
[2019-07-17 06:30] LABS: ALANINE AMINOTRANSFERASE 42 U/L (12-78); ALBUMIN 1.8 G/DL (3.4-5.0); ALBUMIN/GLOBULIN RATIO 0.5 (1.1-1.5); ALKALINE PHOSPHATASE 91 IU/L (46-116); ANION GAP 10 (8-16); ASPARTATE AMINO TRANSFERASE 28 U/L (10-37); BILIRUBIN,TOTAL 0.7 MG/DL (0.1-1.0); BLOOD UREA NITROGEN 25 MG/DL (7-18); BUN/CREATININE RATIO 16.6 (5.4-32.0); CALCIUM 7.4 MG/DL (8.5-10.1); CHLORIDE 112 MMOL/L (99-107); CREATININE 1.51 MG/DL (0.60-1.10); GLUCOSE 131 MG/DL (70-104); MAGNESIUM 1.6 MG/DL (1.5-2.4); PHOSPHORUS 2.2 MG/DL (2.3-4.5); POTASSIUM 3.6 MMOL/L (3.5-5.1); SODIUM 144 MMOL/L (135-145); TOTAL CARBON DIOXIDE 22.3 MMOL/L (24-32); TOTAL PROTEIN 5.4 G/DL (6.4-8.2); eGFR 45 ML/MIN
[2019-07-17] MEDS: lactose-reduced food (Ensure Enlive) - 237ml bottle PO SCH ×4 (08:00→18:00)
[2019-07-17] MEDS: K, MAG and/or Phos replacement - Verify level? MC SCH (08:00)
[2019-07-17] MEDS: dextrose 5%-water 1,000 ML IV SCH ×2 (08:23→22:02)
[2019-07-17] MEDS: amiodarone 200mg tablet PO SCH ×2 (08:37→19:42)
[2019-07-17] MEDS: lactobacillus rhamnosus 10,000 MMU CELLS/CAPSULE OGT SCH ×2 (08:38→19:41)
[2019-07-17] MEDS: pantoprazole 40 MG vial IV SCH (08:38)
[2019-07-17] MEDS: carVEDilol 3.125mg tablet OGT SCH (08:38)
[2019-07-17] MEDS: enoxaparin 30mg/0.3ml syringe SUBCUT SCH ×2 (08:38→19:43)
[2019-07-17] MEDS: lisinopril 10 MG tablet PO SCH (08:38)
[2019-07-17] MEDS: enoxaparin 60mg/0.6ml syringe SUBCUT SCH ×2 (08:39→19:43)
[2019-07-17] MEDS: CefTRIAXone 2gm/D5W 50ml 50 ML IV SCH (08:39)
[2019-07-17] MEDS ORDERED: epoetin 20,000 units/ml inj IV ONE (11:15)
[2019-07-17 12:55] LABS: % IRON SATURATION 25 % (11-46); IRON 31 UG/DL (53-167); TOTAL IRON BINDING CAPACITY 125 UG/DL (259-388)
[2019-07-17] MEDS: HYDROcodone/acetaminophen 10/325mg tab PO PRN (13:06)
--- NOTE | 2019-07-17 18:30 | NUR ---
Patient in room CICU 2008. I have received report from William GOTTLIEB and had the opportunity to ask questions and assume patient care.
[2019-07-17] MEDS: carvedilol 6.25mg tablet OGT SCH (19:42)
[2019-07-17] MEDS: Melatonin 3mg tablet PO SCH (20:16)
[2019-07-17] MEDS: insulin glargine (Lantus) pen - multi-dose SQ SCH (21:00)
[2019-07-18] VITALS (22 sets, daily range): BP systolic 11–138; BP diastolic 37–79
--- NOTE | 2019-07-18 03:00 | NUR ---
Attempted to get Patient up to chair. Pt was able to mostly stand on his own with minimal assistance, but he was shaky on his feet and unable to take a step or turn in place to sit. Patient eventually sat back on the bed, and was settled back in and made comfortable.
[2019-07-18 05:59] LABS: BASOPHILS % (AUTO) 0.4 % (0-1); EOSINOPHILS # (AUTO) 0.1 X10'3 (0-0.9); EOSINOPHILS % (AUTO) 1.2 % (0-6); HEMATOCRIT 23.9 % (42.0-52.0); HEMOGLOBIN 8.2 g/dl (14.0-17.9); LYMPHOCYTES # (AUTO) 0.8 X10'3 (1.1-4.8); LYMPHOCYTES % (AUTO) 9.2 % (21-51); MEAN CORPUSCULAR HEMOGLOBIN 34.3 PG (27.0-31.0); MEAN CORPUSCULAR HGB CONC 34.5 g/dL (33.0-36.5); MEAN CORPUSCULAR VOLUME 99.4 FL (78-98); MEAN PLATELET VOLUME 7.4 FL (7.4-10.4); MONOCYTES # (AUTO) 0.3 X10'3 (0-0.9); MONOCYTES % (AUTO) 3.5 % (2-12); NEUTROPHILS # (AUTO) 7.2 X10'3 (1.8-7.7); NEUTROPHILS % (AUTO) 85.7 % (42-75); PLATELET COUNT 309 X10'3 (140-440); RED BLOOD COUNT 2.41 X10'6 (4.70-6.10); RED CELL DISTRIBUTION WIDTH 13.2 % (11.5-14.5); WHITE BLOOD COUNT 8.4 X10'3 (4.5-11.0)
[2019-07-18 06:09] LABS: ALANINE AMINOTRANSFERASE 52 U/L (12-78); ALBUMIN 1.9 G/DL (3.4-5.0); ALBUMIN/GLOBULIN RATIO 0.5 (1.1-1.5); ALKALINE PHOSPHATASE 100 IU/L (46-116); ANION GAP 9 (8-16); ASPARTATE AMINO TRANSFERASE 34 U/L (10-37); BILIRUBIN,TOTAL 0.5 MG/DL (0.1-1.0); BLOOD UREA NITROGEN 31 MG/DL (7-18); BUN/CREATININE RATIO 17.6 (5.4-32.0); CALCIUM 7.4 MG/DL (8.5-10.1); CHLORIDE 109 MMOL/L (99-107); CREATININE 1.76 MG/DL (0.60-1.10); GLUCOSE 138 MG/DL (70-104); MAGNESIUM 1.6 MG/DL (1.5-2.4); PHOSPHORUS 2.8 MG/DL (2.3-4.5); POTASSIUM 3.8 MMOL/L (3.5-5.1); SODIUM 140 MMOL/L (135-145); TOTAL CARBON DIOXIDE 21.7 MMOL/L (24-32); TOTAL PROTEIN 5.9 G/DL (6.4-8.2); eGFR 37 ML/MIN
--- NOTE | 2019-07-18 06:23 | NUR ---
Problems reprioritized. Patient report given, questions answered & plan of care reviewed with Jolanta GOTTLIEB.
--- NOTE | 2019-07-18 06:27 | NUR ---
Patient in room CICU 2008. I have received report from Wm GOTTLIEB and had the opportunity to ask questions and assume patient care. Patient awake in bed and in no acute distress. Will continue to monitor.
[2019-07-18] MEDS: lactose-reduced food (Ensure Enlive) - 237ml bottle PO SCH ×3 (08:00→18:38)
[2019-07-18] MEDS: K, MAG and/or Phos replacement - Verify level? MC SCH (08:00)
[2019-07-18] MEDS: lactobacillus rhamnosus 10,000 MMU CELLS/CAPSULE OGT SCH ×2 (08:49→20:08)
[2019-07-18] MEDS: pantoprazole 40 MG vial IV SCH (08:49)
[2019-07-18] MEDS: lisinopril 10 MG tablet PO SCH (08:50)
[2019-07-18] MEDS: amiodarone 200mg tablet PO SCH ×2 (08:50→20:08)
[2019-07-18] MEDS: enoxaparin 30mg/0.3ml syringe SUBCUT SCH ×2 (08:50→20:07)
[2019-07-18] MEDS: CefTRIAXone 2gm/D5W 50ml 50 ML IV SCH (08:51)
[2019-07-18] MEDS: enoxaparin 60mg/0.6ml syringe SUBCUT SCH ×2 (08:51→20:07)
[2019-07-18] MEDS: carvedilol 6.25mg tablet OGT SCH ×2 (09:12→20:08)
[2019-07-18] MEDS: dextrose 5%-water 1,000 ML IV SCH ×2 (11:27→23:49)
[2019-07-18] MEDS ORDERED: OLANZapine 5mg rapidly disint. tablet PO ONE (17:25)
[2019-07-18] MEDS ORDERED: haloperidol lactate 5mg/ml inj IM ONE (17:45)
--- NOTE | 2019-07-18 18:19 | NUR ---
Problems reprioritized. Patient report given, questions answered & plan of care reviewed with BULL Bernal. Patient stable at transfer of care.
--- NOTE | 2019-07-18 18:20 | NUR ---
Patient in room CICU 2008. I have received report from Jolanta GOTTLIEB and had the opportunity to ask questions and assume patient care. Pt in bed and is restless, security at bedside. Pt is on 1LNC with spo2 at 94%, IV fluids infusing per provider orders. See interventions for further information. All monitoring alarms audible. Will continue to monitor.
[2019-07-18] MEDS: Melatonin 3mg tablet PO SCH (20:08)
[2019-07-18] MEDS: insulin glargine (Lantus) pen - multi-dose SQ SCH (20:32)
[2019-07-18] MEDS: ALPRAZolam 0.25mg tablet OGT PRN (21:17)
[2019-07-19] VITALS (13 sets, daily range): BP systolic 93–144; BP diastolic 34–60
--- NOTE | 2019-07-19 00:16 | NUR ---
Pt sleeping at this time.
[2019-07-19] MEDS: LORazepam 2 mg/ml vial IV PRN (01:51)
--- NOTE | 2019-07-19 02:14 | NUR ---
0120: Pt became agitated, wanting to get up and go "take care of the dog", attempted to reorientate pt to place and events. Pt was pulling at F/C, adjusted F/C watts, urine output is adequate, bladder scanned with 0ml showing from bladder scan. Was unable to calm pt down, at 0151 Administered Ativan 1mg IV, pt still saying that he wants to get up for the "dog", but is less restless. Bed alarm is on, pt is close to nursing station and in view of RN. Will continue to monitor.
[2019-07-19 02:22] LABS: BASOPHILS % (AUTO) 0.4 % (0-1); EOSINOPHILS # (AUTO) 0.1 X10'3 (0-0.9); EOSINOPHILS % (AUTO) 1.1 % (0-6); HEMOGLOBIN 7.6 g/dl (14.0-17.9); LYMPHOCYTES # (AUTO) 0.7 X10'3 (1.1-4.8); LYMPHOCYTES % (AUTO) 7.8 % (21-51); MEAN CORPUSCULAR HEMOGLOBIN 35.1 PG (27.0-31.0); MEAN CORPUSCULAR VOLUME 100.1 FL (78-98); MONOCYTES # (AUTO) 0.4 X10'3 (0-0.9); MONOCYTES % (AUTO) 4.3 % (2-12); NEUTROPHILS # (AUTO) 7.5 X10'3 (1.8-7.7); NEUTROPHILS % (AUTO) 86.4 % (42-75); PLATELET COUNT 310 X10'3 (140-440); RED BLOOD COUNT 2.17 X10'6 (4.70-6.10); RED CELL DISTRIBUTION WIDTH 13.1 % (11.5-14.5); WHITE BLOOD COUNT 8.6 X10'3 (4.5-11.0)
[2019-07-19 02:28] LABS: HEMATOCRIT 21.7 % (42.0-52.0)
[2019-07-19 02:38] LABS: ALANINE AMINOTRANSFERASE 51 U/L (12-78); ALBUMIN 1.9 G/DL (3.4-5.0); ALBUMIN/GLOBULIN RATIO 0.5 (1.1-1.5); ALKALINE PHOSPHATASE 86 IU/L (46-116); ANION GAP 9 (8-16); ASPARTATE AMINO TRANSFERASE 36 U/L (10-37); BILIRUBIN,TOTAL 0.5 MG/DL (0.1-1.0); BLOOD UREA NITROGEN 26 MG/DL (7-18); BUN/CREATININE RATIO 15.9 (5.4-32.0); CALCIUM 7.7 MG/DL (8.5-10.1); CHLORIDE 106 MMOL/L (99-107); CREATININE 1.64 MG/DL (0.60-1.10); GLUCOSE 113 MG/DL (70-104); MAGNESIUM 1.6 MG/DL (1.5-2.4); PHOSPHORUS 2.8 MG/DL (2.3-4.5); POTASSIUM 3.3 MMOL/L (3.5-5.1); PREALBUMIN 11.9 MG/DL (19-36); SODIUM 139 MMOL/L (135-145); TOTAL CARBON DIOXIDE 24.2 MMOL/L (24-32); eGFR 41 ML/MIN
--- NOTE | 2019-07-19 02:50 | NUR ---
Critical H&H of 7.6&21.7 called to Jocelyn Reese SPRUE KNOCKER, pt at this time is febrile 38.6, and will not swallow medication safely, IV Tylenol ordered, orders also received for blood cultures x2, urine culture, and lactic acid. Pt is requiring 3LNC to keep spo2 at 93%, at beginning of shift was only requiring 1LNC, ABG shows adequate oxygenation. Will implement orders and continue to monitor.
[2019-07-19 02:51] LABS: ABG BASE EXCESS -1.5 mmol/L (-2.0-3.0); ABG HCO3 20.8 mmol/L (22.0-26.0); ABG OXYGEN SATURATION 93.6 % (95-98); ABG PH (T) 7.495 (7.350-7.450); ABG PO2 (T) 70.9 mmHg (83-108); FCOHb 0.3 % (0.5-1.5); FLOW 1 L/min; FMetHb 0.3 % (0.3-1.12); PATIENT TEMPERATURE 38.4; RESPIRATORY RATE (OBSERVED) 26 b/min; TOTAL HEMOGLOBIN 8.4 G/dl (14.0-17.9)
[2019-07-19] MEDS ORDERED: acetaminophen 1,000mg/100ml IV 100 ML IV ONE (02:55)
[2019-07-19] MEDS: potassium CL 10mEq/100ml bag 100 ML IV PRN ×4 (04:22→08:59)
[2019-07-19 04:49] LABS: CLARITY,URINE CLOUDY (Clear); COLOR,URINE YELLOW (Yellow); GLUCOSE, URINE NEGATIVE (Neg); KETONES,URINE NEGATIVE (Neg); LEUKOCYTE ESTERASE ,URINE MODERATE (Neg); NITRITES, URINE NEGATIVE (Neg); OCCULT BLOOD,URINE MODERATE (Neg); PH,URINE 5.5 (4.8-8.0); PROTEIN,URINE NEGATIVE (Neg); UROBILINOGEN,URINE 0.2 E.U/dL (0.2-1.0)
[2019-07-19 04:53] LABS: UA COLLECTION TYPE FOLEY CATH
[2019-07-19 04:58] LABS: RBC,URINE 0-2 /HPF (0-2); WBC,URINE TNTC /HPF (0-4)
[2019-07-19 05:10] LABS: BACTERIA,URINE 1+ /HPF (Neg)
[2019-07-19 05:11] LABS: MUCUS STRANDS MODERATE /LPF (Neg); SQUAMOUS EPITHELIAL CELL,UR FEW /LPF (FEW)
--- NOTE | 2019-07-19 05:45 | NUR ---
Colostomy bag changed, skin care provided.
--- NOTE | 2019-07-19 06:35 | NUR ---
Student documentation: I have reviewed and agree with all interventions, assessments performed and documented by Rocky GOTTLIEB. Student Medication Administration: For this medication-pass time frame, all medication were reviewed, dispensed, administered and documented per hospital policy by Rocky GOTTLIEB. Addendum: 07/19/19 at 2340 by Dolores Palm RN Correction: Rocky is ADN student not RN.
--- NOTE | 2019-07-19 06:35 | NUR ---
Problems reprioritized. Patient report given, questions answered & plan of care reviewed with Molly GOTTLIEB.
[2019-07-19] MEDS: carvedilol 6.25mg tablet OGT SCH ×2 (07:59→19:28)
[2019-07-19] MEDS: amiodarone 200mg tablet PO SCH ×2 (07:59→19:28)
[2019-07-19] MEDS: lisinopril 10 MG tablet PO SCH (07:59)
[2019-07-19] MEDS: pantoprazole 40 MG vial IV SCH (08:00)
[2019-07-19] MEDS: lactobacillus rhamnosus 10,000 MMU CELLS/CAPSULE OGT SCH ×2 (08:00→19:28)
[2019-07-19] MEDS: K, MAG and/or Phos replacement - Verify level? MC SCH (08:00)
[2019-07-19] MEDS: CefTRIAXone 2gm/D5W 50ml 50 ML IV SCH (08:00)
[2019-07-19] MEDS: enoxaparin 30mg/0.3ml syringe SUBCUT SCH ×2 (08:01→19:28)
[2019-07-19] MEDS: enoxaparin 60mg/0.6ml syringe SUBCUT SCH ×2 (08:01→19:29)
[2019-07-19] MEDS: ALPRAZolam 0.25mg tablet OGT PRN (09:04)
[2019-07-19] MEDS: lactose-reduced food (Ensure Enlive) - 237ml bottle PO SCH ×3 (09:14→18:14)
[2019-07-19] MEDS: haloperidol 5mg tablet OGT PRN (10:45)
--- NOTE | 2019-07-19 17:00 | NUR ---
Pt sent to Ortho floor bed 4020A with all belongings. Hearing aid in left ear only, glasses in belongings bag and clothing. Family aware that he has moved. Placed on tele #3. Report given to Shira GOTTLIEB
--- NOTE | 2019-07-19 18:20 | NUR ---
Patient in room ORTHO 4020. I have received report from BULL Silva and had the opportunity to ask questions and assume patient care. Sitter is at the bedside and patient is sleeping comfortably at this time, I will continue to monitor.
[2019-07-19] MEDS: dextrose 5%-water 1,000 ML IV SCH (18:56)
[2019-07-19] MEDS: Melatonin 3mg tablet PO SCH (19:27)
[2019-07-19] MEDS: insulin glargine (Lantus) pen - multi-dose SQ SCH (21:00)
--- NOTE | 2019-07-20 01:42 | NUR ---
Patient desating while sleeping and not clearing secretions. I have put 3L NC in mouth as he is mouth breather and also provided suction at bedside. I will continue to monitor.
--- NOTE | 2019-07-20 04:01 | NUR ---
Ativan given at 2355, I noticed it did not scan or log on MAR.
[2019-07-20] MEDS: haloperidol 5mg tablet OGT PRN (04:08)
[2019-07-20 06:00] VITALS: BP 102/59
--- NOTE | 2019-07-20 06:00 | NUR ---
Granddaughter cld for update.
--- NOTE | 2019-07-20 06:11 | NUR ---
received report from timbo doyle
--- NOTE | 2019-07-20 06:19 | NUR ---
Problems reprioritized. Patient report given, questions answered & plan of care reviewed with BULL Carrasco.
[2019-07-20] MEDS: K, MAG and/or Phos replacement - Verify level? MC SCH (08:00)
[2019-07-20] MEDS: carvedilol 6.25mg tablet OGT SCH ×2 (08:00→20:24)
[2019-07-20] MEDS: lisinopril 10 MG tablet PO SCH (08:00)
[2019-07-20] MEDS: amiodarone 200mg tablet PO SCH ×2 (08:00→20:25)
[2019-07-20] MEDS: lactobacillus rhamnosus 10,000 MMU CELLS/CAPSULE OGT SCH ×2 (08:00→20:24)
[2019-07-20] MEDS: lactose-reduced food (Ensure Enlive) - 237ml bottle PO SCH ×3 (08:07→20:28)
[2019-07-20] MEDS: CefTRIAXone 2gm/D5W 50ml 50 ML IV SCH (08:21)
[2019-07-20] MEDS: pantoprazole 40 MG vial IV SCH (08:26)
[2019-07-20] MEDS: enoxaparin 30mg/0.3ml syringe SUBCUT SCH ×2 (08:29→20:27)
[2019-07-20] MEDS: enoxaparin 60mg/0.6ml syringe SUBCUT SCH ×2 (08:30→20:26)
[2019-07-20 10:00] VITALS: BP 115/48
[2019-07-20] MEDS: dextrose 5%-water 1,000 ML IV SCH ×2 (10:05→23:24)
--- NOTE | 2019-07-20 10:16 | NUR ---
changed pt blunt cath bag
[2019-07-20] MEDS: LORazepam 2 mg/ml vial IV PRN (12:13)
--- NOTE | 2019-07-20 14:51 | NUR ---
reassessment: Pt PO remains poor 0-25% meals/ONS past 5 days not meeting needs. Remains delirious AOx1 per MD note. Per RN today; pt has etoh hx w/ MCV 100.1. RD d/w RN pt would benefit from thiamin/folic/MVI per MD approval. May also help w/ mentation. Receiving DEX. Given low PO, mild weakness, and BLE +2 edema pt qualifies for non-severe malnutrition; MD notified. 400ml colostomy output so far today. May also benefit from appetite stimulant. Will continue to monitor. Recommend: 1. Continue mechanical soft diet w/ chopped foods.thin liquid per SP 2. May benefit from anti-diarrheal if high colostomy output 3. Ensure enlive with meals 4. weekly wts 5. thiamin/folic/MVI given etoh hx per MD approval 6. consider appetite stimulant per MD approval given low PO Addendum: 07/20/19 at [address] Amended: Links added.
--- NOTE | 2019-07-20 18:18 | NUR ---
gave report timbo turk
--- NOTE | 2019-07-20 18:30 | NUR ---
Patient in room ORTHO 4020. I have received report from BULL Han and had the opportunity to ask questions and assume patient care. Addendum: 07/21/19 at 0110 by Emilia Andre RN Amended: Links added.
[2019-07-20 18:43] VITALS: BP 138/53
[2019-07-20] MEDS: Melatonin 3mg tablet PO SCH (20:25)
--- NOTE | 2019-07-20 20:30 | NUR ---
Pt is anxious wants to get oob and walk to bathroom for bath, thinks it is morning, explained it is evening, pt freq asking what city we are in, very concerned about his dog and says needs to go home and take care of him. Explained to pt that someone is caring for his dog. pt tries to think of granddaughters name but forgets. Remembers her name and rivas with some prompting. pt does not attempt to get oob, and is pleasant and cooperative. Very [place]. Addendum: 07/21/19 at 0130 by Emilia Andre RN Amended: Links added.
--- NOTE | 2019-07-20 20:30 | NUR ---
complete bed bath given, lotion to back and legs, blunt care, hair washed. pt refuses to brush teeth at this time. will try again. Addendum: 07/21/19 at 0130 by Emilia Andre RN Amended: Links added.
[2019-07-20] MEDS: insulin glargine (Lantus) pen - multi-dose SQ SCH (21:12)
[2019-07-20 22:00] VITALS: BP 125/58
[2019-07-21] MEDS: ALPRAZolam 0.25mg tablet OGT PRN (04:04)
[2019-07-21 06:00] VITALS: BP 129/40
--- NOTE | 2019-07-21 06:07 | NUR ---
Problems reprioritized. Patient report given, questions answered & plan of care reviewed with BULL Han. Addendum: 07/21/19 at 0607 by Emilia Andre RN Amended: Links added.
--- NOTE | 2019-07-21 06:07 | NUR ---
received report from BULL turk
[2019-07-21 06:42] LABS: ALLEN'S TEST Positive
[2019-07-21] MEDS: carvedilol 6.25mg tablet OGT SCH ×2 (08:00→20:37)
[2019-07-21] MEDS: lisinopril 10 MG tablet PO SCH (08:00)
[2019-07-21] MEDS: lactobacillus rhamnosus 10,000 MMU CELLS/CAPSULE OGT SCH ×2 (08:00→20:43)
[2019-07-21] MEDS: CefTRIAXone 2gm/D5W 50ml 50 ML IV SCH (08:00)
[2019-07-21] MEDS: amiodarone 200mg tablet PO SCH ×2 (08:00→20:38)
[2019-07-21] MEDS: enoxaparin 30mg/0.3ml syringe SUBCUT SCH ×2 (08:00→20:00)
[2019-07-21] MEDS: enoxaparin 60mg/0.6ml syringe SUBCUT SCH ×2 (08:00→20:00)
[2019-07-21] MEDS: pantoprazole 40 MG vial IV SCH (08:00)
[2019-07-21] MEDS: K, MAG and/or Phos replacement - Verify level? MC SCH (08:00)
[2019-07-21] MEDS: lactose-reduced food (Ensure Enlive) - 237ml bottle PO SCH ×3 (08:08→18:23)
--- NOTE | 2019-07-21 08:30 | NUR ---
pt is very uncooperative at this time and is refusing all meds and is telling me that he 'doesn't want to be here' continue to educate pt on the importance of taking his medication
[2019-07-21 10:00] VITALS: BP 123/69
[2019-07-21] MEDS: LORazepam 2 mg/ml vial IV PRN (11:18)
--- NOTE | 2019-07-21 12:00 | NUR ---
pt is refusing to have his finger poked for bg at this time, continue to monitor
--- NOTE | 2019-07-21 12:02 | NUR ---
Assessed pt's ostomy, noted drainage bag intact with no leaks noted. Prolapsed ostomy visible, beefy red in color with no visible issues. Will continue to follow.
[2019-07-21] MEDS: dextrose 5%-water 1,000 ML IV SCH (14:00)
[2019-07-21 18:00] VITALS: BP 128/59
--- NOTE | 2019-07-21 18:25 | NUR ---
gave report to timbo cruz
[2019-07-21] MEDS: Melatonin 3mg tablet PO SCH (20:41)
[2019-07-21] MEDS: insulin glargine (Lantus) pen - multi-dose SQ SCH (21:00)
[2019-07-21 22:00] VITALS: BP 135/58
[2019-07-22] VITALS (17 sets, daily range): BP systolic 100–143; BP diastolic 43–76
[2019-07-22] MEDS: dextrose 5%-water 1,000 ML IV SCH ×3 (03:20→23:41)
[2019-07-22] MEDS: enoxaparin 60mg/0.6ml syringe SUBCUT SCH ×2 (08:00→21:34)
[2019-07-22] MEDS: enoxaparin 30mg/0.3ml syringe SUBCUT SCH ×2 (08:00→21:33)
[2019-07-22] MEDS: lactose-reduced food (Ensure Enlive) - 237ml bottle PO SCH ×3 (08:00→18:00)
[2019-07-22] MEDS: K, MAG and/or Phos replacement - Verify level? MC SCH (08:00)
[2019-07-22] MEDS: carvedilol 6.25mg tablet OGT SCH ×2 (08:27→20:32)
[2019-07-22] MEDS: lactobacillus rhamnosus 10,000 MMU CELLS/CAPSULE OGT SCH ×2 (08:27→20:32)
[2019-07-22] MEDS: lisinopril 10 MG tablet PO SCH (08:34)
[2019-07-22] MEDS: CefTRIAXone 2gm/D5W 50ml 50 ML IV SCH (08:35)
[2019-07-22] MEDS: pantoprazole 40 MG vial IV SCH (08:35)
[2019-07-22] MEDS: amiodarone 200mg tablet PO SCH ×2 (08:35→20:33)
[2019-07-22 11:05] LABS: BASOPHILS % (AUTO) 0.4 % (0-1); EOSINOPHILS # (AUTO) 0.1 X10'3 (0-0.9); EOSINOPHILS % (AUTO) 0.9 % (0-6); HEMOGLOBIN 7.3 g/dl (14.0-17.9); LYMPHOCYTES # (AUTO) 0.6 X10'3 (1.1-4.8); LYMPHOCYTES % (AUTO) 8.5 % (21-51); MEAN CORPUSCULAR HEMOGLOBIN 33.5 PG (27.0-31.0); MEAN CORPUSCULAR HGB CONC 34.1 g/dL (33.0-36.5); MEAN CORPUSCULAR VOLUME 98.4 FL (78-98); MEAN PLATELET VOLUME 6.6 FL (7.4-10.4); MONOCYTES # (AUTO) 0.4 X10'3 (0-0.9); MONOCYTES % (AUTO) 5.6 % (2-12); NEUTROPHILS # (AUTO) 6.3 X10'3 (1.8-7.7); NEUTROPHILS % (AUTO) 84.6 % (42-75); PLATELET COUNT 338 X10'3 (140-440); RED BLOOD COUNT 2.17 X10'6 (4.70-6.10); RED CELL DISTRIBUTION WIDTH 12.9 % (11.5-14.5); WHITE BLOOD COUNT 7.5 X10'3 (4.5-11.0)
[2019-07-22 11:10] LABS: HEMATOCRIT 21.3 % (42.0-52.0)
[2019-07-22 11:17] LABS: PARTIAL THROMBOPLASTIN TIME 26 SECONDS (22-32)
[2019-07-22 11:24] LABS: ALANINE AMINOTRANSFERASE 40 U/L (12-78); ALBUMIN 1.9 G/DL (3.4-5.0); ALBUMIN/GLOBULIN RATIO 0.5 (1.1-1.5); ALKALINE PHOSPHATASE 78 IU/L (46-116); ANION GAP 10 (8-16); ASPARTATE AMINO TRANSFERASE 25 U/L (10-37); BILIRUBIN,TOTAL 0.3 MG/DL (0.1-1.0); BLOOD UREA NITROGEN 12 MG/DL (7-18); CALCIUM 7.5 MG/DL (8.5-10.1); CHLORIDE 106 MMOL/L (99-107); CREATININE 1.34 MG/DL (0.60-1.10); GLUCOSE 115 MG/DL (70-104); MAGNESIUM 1.6 MG/DL (1.5-2.4); PHOSPHORUS 2.8 MG/DL (2.3-4.5); POTASSIUM 3.3 MMOL/L (3.5-5.1); SODIUM 141 MMOL/L (135-145); TOTAL CARBON DIOXIDE 25.3 MMOL/L (24-32); TOTAL PROTEIN 5.8 G/DL (6.4-8.2); eGFR 51 ML/MIN
[2019-07-22] MEDS: potassium CL 10mEq/100ml bag 100 ML IV PRN ×2 (13:11→15:01)
[2019-07-22] MEDS ORDERED: iohexol 300 MG/1 ML 50ml polymer ONE (13:52)
--- NOTE | 2019-07-22 14:01 | NUR ---
F/u: POLO d/w RN regarding appetite stimulant per MD approval given consistently poor PO and AOx1. Malick 12; skin intact. Addendum: 07/22/19 at [address] Amended: Links added.
[2019-07-22 15:48] LABS: OCCULT BLOOD STOOL NEGATIVE (Neg)
--- NOTE | 2019-07-22 16:05 | NUR ---
Patient report given to Eladio GOTTLIEB
[2019-07-22] MEDS ORDERED: fentaNYL/PF 50MCG/1 ML 2ML syringe ONE (16:46)
[2019-07-22] MEDS ORDERED: propofol inj 20 ML IV ONE (16:48)
[2019-07-22] MEDS ORDERED: sevoflurane 250ml liquid IH ONE (16:54)
[2019-07-22] MEDS ORDERED: ringers solution, lacted 1,000 ML IV SCH (16:57)
[2019-07-22] MEDS ORDERED: proCHLORperazine 10 MG/2 ml inj IV PRN (17:00)
[2019-07-22] MEDS ORDERED: ondansetron/PF 4mg/2ml inj IV PRN (17:00)
[2019-07-22] MEDS ORDERED: morphine 4 MG/ML inj SYRINge IV PRN ×2 (17:00)
[2019-07-22] MEDS ORDERED: meperidine/PF 25mg/ml syringe IV PRN ×3 (17:00)
[2019-07-22] MEDS ORDERED: ePHEDrine 50MG/ML INJ. ONE (17:36)
--- NOTE | 2019-07-22 17:54 | NUR ---
Received from OR via ORTHO BED WITH VAHAYLEE , accompanied by Anesthesiologist AURA and report given by Anesthesiolgist. PATIENT WITH 18G PIV IN RIGHT WRIST RUNNING LR AT 100. SCDS ON. Addendum: 07/22/19 at 1805 by Eladio Redding RN, RN Amended: Links added.
[2019-07-22 17:59] LABS: CLARITY,URINE CLOUDY (Clear); LEUKOCYTE ESTERASE ,URINE MODERATE (Neg); OCCULT BLOOD,URINE LARGE (Neg); PH,URINE 7.5 (4.8-8.0); PROTEIN,URINE 100 mg/dl (Neg)
[2019-07-22 18:00] LABS: UA COLLECTION TYPE OTHER
--- NOTE | 2019-07-22 18:00 | NUR ---
Patient in room ORTHO 4020. I have received report from ESCONDIDO and had the opportunity to ask questions and assume patient care.
[2019-07-22 18:01] LABS: COLOR,URINE BROWN (Yellow)
[2019-07-22 18:03] LABS: GLUCOSE, URINE NEGATIVE (Neg)
[2019-07-22 18:06] LABS: KETONES,URINE NEGATIVE (Neg)
[2019-07-22 18:07] LABS: NITRITES, URINE NEGATIVE (Neg)
[2019-07-22 18:08] LABS: WBC,URINE TNTC /HPF (0-4)
[2019-07-22 18:11] LABS: BACTERIA,URINE 1+ /HPF (Neg); SQUAMOUS EPITHELIAL CELL,UR NONE SEEN /LPF (FEW)
[2019-07-22 18:12] LABS: AMORPHOUS PHOSPHATES 4+; MUCUS STRANDS MODERATE /LPF (Neg)
--- NOTE | 2019-07-22 18:22 | NUR ---
Patient repor gave to Hyacinth RN's
--- NOTE | 2019-07-22 18:44 | NUR ---
ALL CRITERIA FOR TRANSFER TO THE FLOOR HAS BEEN ACHIEVED. VSS. BED LOW, CALL LIGHT AND VS. SET IN PLACE. RN PRESENT TO ACCEPT CARE. PATIENT RESTING COMFORTABLY IN BED. BELONGINGS SENT WITH PATIENT. DRESSINGS CDI. RNS WILL AND ROYAL PRESENT TO ACCEPT CARE. Addendum: 07/22/19 at 1859 by Eladio Redding RN RN Amended: Links added.
[2019-07-22] MEDS: Melatonin 3mg tablet PO SCH (20:32)
[2019-07-22] MEDS: insulin glargine (Lantus) pen - multi-dose SQ SCH (21:37)
[2019-07-22] MEDS: potassium Cl 20 mEq SR tablet OGT PRN (23:58)
[2019-07-23 02:28] VITALS: BP 107/54
[2019-07-23] MEDS: potassium Cl 20 mEq SR tablet OGT PRN (04:13)
[2019-07-23 06:00] VITALS: BP 121/55
[2019-07-23] MEDS: dextrose 5%-water 1,000 ML IV SCH (06:00)
--- NOTE | 2019-07-23 06:39 | NUR ---
Patient in room ORTHO 4020. I have received report from Stormy GOTTLIEB and had the opportunity to ask questions and assume patient care.
[2019-07-23] MEDS: enoxaparin 60mg/0.6ml syringe SUBCUT SCH (07:22)
[2019-07-23] MEDS: enoxaparin 30mg/0.3ml syringe SUBCUT SCH (07:22)
[2019-07-23] MEDS: amiodarone 200mg tablet PO SCH (07:23)
[2019-07-23] MEDS: CefTRIAXone 2gm/D5W 50ml 50 ML IV SCH (07:23)
[2019-07-23] MEDS: lisinopril 10 MG tablet PO SCH (07:23)
[2019-07-23] MEDS: pantoprazole 40 MG vial IV SCH (07:23)
[2019-07-23] MEDS: carvedilol 6.25mg tablet OGT SCH (07:24)
[2019-07-23] MEDS: lactobacillus rhamnosus 10,000 MMU CELLS/CAPSULE OGT SCH (07:24)
[2019-07-23 07:38] LABS: POTASSIUM 3.7 MMOL/L (3.5-5.1)
[2019-07-23] MEDS: K, MAG and/or Phos replacement - Verify level? MC SCH (07:45)
[2019-07-23] MEDS: lactose-reduced food (Ensure Enlive) - 237ml bottle PO SCH ×2 (08:00→13:35)
[2019-07-23] MEDS: acetaminophen 325mg tablet PO PRN (09:11)
[2019-07-23 10:00] VITALS: BP 105/54
[2019-07-23 10:34] LABS: BASOPHILS # (AUTO) 0.1 X10'3 (0-0.2); BASOPHILS % (AUTO) 0.9 % (0-1); EOSINOPHILS # (AUTO) 0.1 X10'3 (0-0.9); EOSINOPHILS % (AUTO) 0.8 % (0-6); HEMATOCRIT 22.1 % (42.0-52.0); HEMOGLOBIN 7.6 g/dl (14.0-17.9); LYMPHOCYTES # (AUTO) 0.7 X10'3 (1.1-4.8); LYMPHOCYTES % (AUTO) 9.3 % (21-51); MEAN CORPUSCULAR HEMOGLOBIN 34.2 PG (27.0-31.0); MEAN CORPUSCULAR HGB CONC 34.3 g/dL (33.0-36.5); MEAN CORPUSCULAR VOLUME 99.6 FL (78-98); MEAN PLATELET VOLUME 6.9 FL (7.4-10.4); MONOCYTES # (AUTO) 0.6 X10'3 (0-0.9); MONOCYTES % (AUTO) 7.6 % (2-12); NEUTROPHILS # (AUTO) 6.3 X10'3 (1.8-7.7); NEUTROPHILS % (AUTO) 81.4 % (42-75); PLATELET COUNT 366 X10'3 (140-440); RED BLOOD COUNT 2.22 X10'6 (4.70-6.10); RED CELL DISTRIBUTION WIDTH 13.1 % (11.5-14.5); WHITE BLOOD COUNT 7.7 X10'3 (4.5-11.0)
[2019-07-23 10:35] LABS: ALANINE AMINOTRANSFERASE 40 U/L (12-78); ALBUMIN 1.9 G/DL (3.4-5.0); ALBUMIN/GLOBULIN RATIO 0.5 (1.1-1.5); ALKALINE PHOSPHATASE 75 IU/L (46-116); ANION GAP 9 (8-16); ASPARTATE AMINO TRANSFERASE 28 U/L (10-37); BILIRUBIN,TOTAL 0.3 MG/DL (0.1-1.0); BLOOD UREA NITROGEN 12 MG/DL (7-18); BUN/CREATININE RATIO 8.5 (5.4-32.0); CALCIUM 7.6 MG/DL (8.5-10.1); CHLORIDE 106 MMOL/L (99-107); CREATININE 1.42 MG/DL (0.60-1.10); GLUCOSE 114 MG/DL (70-104); MAGNESIUM 1.6 MG/DL (1.5-2.4); PHOSPHORUS 2.4 MG/DL (2.3-4.5); SODIUM 139 MMOL/L (135-145); TOTAL CARBON DIOXIDE 23.8 MMOL/L (24-32); eGFR 48 ML/MIN
--- NOTE | 2019-07-23 12:11 | NUR ---
Reassessment: Pt NPO part of 07/22 for cystoscopy and kidney stone retrieval per MD notes. Patient's diet has since been resumed however continues with inadequate PO intake of meals and ONS documented with 0-25% with refusals. D/w sanitary chemist recommendation for appetite stimulant which MD agreed to however no orders at this time. Patient with decent PO intake at breakfast this morning documented with 50% of meal and 75% of milk, this is the best pt has eaten since admit. Pt continues to be documented as confused and A/O x 2 with intermittent agitation. LBM 07/23 documented with 425 mL stool output per I&O. Will continue to follow. Recommend: 1. Continue mechanical soft diet w/ chopped foods.thin liquid per SP 2. May benefit from anti-diarrheal if high colostomy output 3. Ensure enlive with meals 4. weekly wts 5. thiamin/folic/MVI given etoh hx per MD approval 6. consider appetite stimulant per MD approval given low PO Addendum: 07/23/19 at [address] Amended: Links added.
--- NOTE | 2019-07-23 14:53 | NUR ---
PRESSURE ULCER EDUCATION: DEFINITION: A pressure ulcer is an area of skin that breaks down when you stay in one position too long. The constant pressure against the skin reduces the blood flow to that area and the affected tissue dies. CAUSES: "Being bedridden or in a wheelchair "Fragile skin "Having a chronic condition, such as diabetes or vascular disease "Inability to move certain parts of your body without assistance "Older age "Incontinence of urine or stool SYMPTOMS: "A reddened area that DOES NOT turn white when pressed on - this can be the beginning of a pressure ulcer "A blister, deep sore or a crater - these can be advanced pressure ulcers FIRST AID: "Relieve the pressure on this area "Keep the area clean and dry "Call your primary doctor if you see any of the above symptoms "DO NOT massage the area "DO NOT use a donut shaped or ring shaped pillow- these actually interfere with the blood flow and cause complications PREVENTION: "Check for pressure ulcers everyday "Change position at least every two hours to relieve pressure "Use items that help relieve pressure- pillows, sheepskin, foam padding, and powders. "Keep skin clean and dry "Eat healthy well balanced meals "Exercise daily IF YOU SEE ANY OF THESE SYMPTOMS WHILE IN THE HOSPITAL - TELL YOUR NURSE IMMEDIATELY. IF YOU SEE ANY OF THESE SYMPTOMS WHILE AT HOME OR HAVE ANY QUESTIONS OR CONCERNS ABOUT PRESSURE ULCERS - CALL YOUR PRIMARY DOCTOR IMMEDIATELY. Addendum: 07/23/19 at 1453 by Meryl Felipe RN Amended: Links added.
[2019-07-23] MEDS ORDERED: CARV6.253 OGT (15:33)
[2019-07-23] MEDS ORDERED: LEVO500T2 PO (15:35)
--- NOTE | 2019-07-23 16:20 | NUR ---
straight cath. 350ml out
--- NOTE | 2019-07-23 16:38 | NUR ---
Problems reprioritized. Patient report given, questions answered & plan of care reviewed with Kris RN.
== END 2019-07-23 17:30 | DRG 853 ==
LOC: ER 17:55 → UNDOADMIN 23:36 → CICU 2S 23:36 → ORTHO 4S 07-19 17:00
PROVIDERS: ATTEND Internal Medicine Critical Care Medicine
PROC: 5A1955Z Respiratory Ventilation, Greater than 96 Consecutive Hours (ICD-10-PCS; principal; 2019-07-05)
PROC: 0BH17EZ Insertion of Endotracheal Airway into Trachea, Via Natural or Artificial Opening (ICD-10-PCS; 2019-07-05)
PROC: 02HV33Z Insertion of Infusion Device into Superior Vena Cava, Percutaneous Approach (ICD-10-PCS; 2019-07-06)
PROC: B548ZZA Ultrasonography of Superior Vena Cava, Guidance (ICD-10-PCS; 2019-07-06)
PROC: 0TC78ZZ Extirpation of Matter from Left Ureter, Via Natural or Artificial Opening Endoscopic (ICD-10-PCS; 2019-07-22)
PROC: BT1B1ZZ Fluoroscopy of Bladder and Urethra using Low Osmolar Contrast (ICD-10-PCS; 2019-07-22)
DX: A41.59 Other Gram-negative sepsis (principal); J96.01 Acute respiratory failure with hypoxia; R65.21 Severe sepsis with septic shock; N17.9 Acute kidney failure, unspecified; E87.2 Acidosis; I82.91 Chronic embolism and thrombosis of unspecified vein; N13.6 Pyonephrosis; E87.5 Hyperkalemia; I71.4 Abdominal aortic aneurysm, without rupture; E86.0 Dehydration; F03.90 Unspecified dementia, unspecified severity, without behavioral disturbance, psychotic disturbance, mood disturbance, and anxiety; F41.9 Anxiety disorder, unspecified; I12.9 Hypertensive chronic kidney disease with stage 1 through stage 4 chronic kidney disease, or unspecified chronic kidney disease; I48.0 Paroxysmal atrial fibrillation; N18.3 Chronic kidney disease, stage 3 (moderate); N40.0 Benign prostatic hyperplasia without lower urinary tract symptoms; G89.29 Other chronic pain; F10.10 Alcohol abuse, uncomplicated; Z79.899 Other long term (current) drug therapy
CPT/HCPCS: 31500; 36415; 36569; 36600; 70450; 70544; 70551; 71045; 74176; 74420; 76000; 76775; 76937; 80053; 80202; 81001; 82140; 82150; 82272; 82550; 82570; 82803; 82948; 83036; 83540; 83550; 83605; 83690; 83735; 83880; 83935; 84100; 84132; 84133; 84134; 84145; 84156; 84300; 84478; 84484; 85018; 85025; 85610; 85730; 87040; 87070; 87077; 87081; 87088; 87186; 87207; 88300; 92508; 92616; 93005; 93971; 94002; 94003; 94640; 94760; 96365; 96375; 96376; 97110; 97116; 97161; 97530; 97535; 99285; A4402; A4618; A7000; C1758; C1769; C9113; G0378; J0131; J0282; J0696; J1630; J1644; J1650; J1815; J1940; J2060; J2175; J2250; J2543; J2704; J2930; J3010; J3370; J3411; J3475; J3480; J3490; J7030; J7040; J7050; J7060; J7070; J7120; P9045; P9047; Q4081; Q9967